=== PATIENT | male | born 1980 | race Caucasian/White ===

== ENCOUNTER 2016-08-31 11:27 | Inpatient (IN) | payer BC, OTHER ==
[~2016-08-31] VITALS: Ht 180.3 cm; Wt 73.5 kg
[~2016-08-31 11:27] MED LIST: CHEMO PO; IBUP-1542 PO; METO5TAB2 PO; NAPR-260 PO; OMEP10CA4 PO; OMEP20CA16 PO; PILO5TAB PO; PRED-248 PO; UDMYL PO; ZOLP5TAB6 PO; [UNRECOGNIZED DRUG - REMARK] PO; [UNRECOGNIZED DRUG - REMARK] PO
[2016-08-31] MEDS ORDERED: SOD CHLORIDE 0.9% 1,000 ML IV STA (11:54)
--- NOTE | 2016-08-31 12:05 | ERA ---
ER Documentation Chief Complaint Date/Time DATE: 08/31/16 TIME: 12:01 Chief Complaint Patient fell in the shower x2 he has had hematuria and blood in stool HPI HPI: Patient is a 36-year-old male with history of Susanna's granulomatosis who presents with syncopal episode in the shower. The patient states that as he was getting out of the shower he felt like the lights were getting dark and his hearing was getting muffled. He called out to his who witnessed him collapse and strike his head on the edge of the shower. He quickly regained consciousness, and she helped him to stand up, but he had a second episode of loss of consciousness and struck his head on the toilet. After the second episode, he was unconscious for 3 minutes. There was no reported seizure-like activity. Patient is not on blood thinners. Patient states that he has had bloody diarrhea for the last 1-1/2 months. He feels generally weak and dizzy. He also has chronic, constant dull chest pain, that his PMD has evaluated and determined to be due to pulmonary nodules. There is no change in the symptoms at this time. There is no shortness of breath, no pleuritic pain. Patient denies headache. He does complain of greater than 1 week of bilateral lower abdominal pain. Denies vomiting or fever. ROS All systems reviewed and are negative except as per history of present illness. Medications Home Meds Active Scripts Ibuprofen* (Ibuprofen*) 600 Mg Tablet, 600 MG PO Q6H Y for PA, #30 TAB WITH FOOD Prov:ANITA GUIDRY NP 03/26/15 Omeprazole* (Omeprazole*) 10 Mg Capsule.dr, 10 MG PO DAILY, #30 CAP Prov:ANITA GUIDRY NP 03/26/15 Magaldrate/Simethicone* (Mag-Al Plus Suspension*) 30 Ml Oral.susp, 30 ML PO Q6H Y for GASTROINTESTINAL UPSET, #1 BOTTLE Prov:ANITA GUIDRY NP 03/26/15 Naproxen* (Naprosyn*) 500 Mg Tablet, 500 MG PO BID Y for PAIN AND/OR INFLAMMATION, #30 TAB Prov:BETINA MELGAR-C 12/29/14 Reported Medications Azathioprine* (Imuran*) 50 Mg Tab, 50 MG PO DAILY, TAB 08/31/16 Discontinued Reported Medications Metoclopramide Hcl (Reglan) 5 Mg Tab, PO PRN 10/22/13 [Bp Med, Name/Dose Unk] No Conflict Check, PO DAILY 10/22/13 Zolpidem Tartrate* (Zolpidem Tartrate*) 5 Mg Tablet, PO PRN 10/22/13 [Ativan, Unk Dose] No Conflict Check, PO PRN 10/22/13 Omeprazole* (Omeprazole*) 20 Mg Capsule.dr, PO DAILY 10/22/13 [place]ine Hcl* (Salagen*) 5 Mg Tablet, PO DAILY 10/22/13 [Chemo] No Conflict Check, PO ONCE A WK 10/22/13 Prednisone (Prednisone) 10 Mg Tablet, 7 MG PO DAILY, 0 Refills 04/13/12 Allergies Allergies: Coded Allergies: No Known Allergy (Unverified , 03/25/15) PMhx/Soc Past medical history: Susanna's granulomatosis Past surgical history: Denies Social history: Denies tobacco or alcohol History of Surgery: Yes Anesthesia Reaction: No Hx Neurological Disorder: No Hx Respiratory Disorders: No Hx Cardiac Disorders: Yes (HTN) Hx Psychiatric Problems: No Hx Miscellaneous Medical Probl: Yes (cotto's ) Hx Alcohol Use: No Hx Substance Use: No Hx Tobacco Use: No FmHx Family History: No coronary disease, No diabetes Physical Exam Vitals Vital Signs Date Time Temp Pulse Resp B/P Pulse Ox O2 Delivery O2 Flow Rate FiO2 08/31/16 14:32 93 18 108/73 100 08/31/16 12:27 76 11 105/63 99 Room Air 08/31/16 11:32 98.6 90 20 113/57 100 Physical Exam Const: Alert, no acute distress Head: Small contusion to right frontal area, no hematoma Eyes: Normal Conjunctiva, no pallor or icterus, no nystagmus ENT: Normal External Ears, Nose and Mouth. Moist mucous membranes Neck: Full range of motion. No meningismus. Nexus negative Resp: Clear to auscultation bilaterally, no wheezes, rales or rhonchi Cardio: Regular rate and rhythm, no murmurs Abd: Soft, mild bilateral lower quadrant tenderness, no guarding, no rebound , non distended. No pulsatile mass Skin: No petechiae or rashes Back: No midline or flank tenderness Ext: No cyanosis, or edema Neur: Awake and alert, cranial nerves II through XII intact bilaterally, strength and sensation intact in 4 extremities. Psych: Normal Mood and Affect Result Diagram: 08/31/16 1159 08/31/16 1159 Results 24 hrs Laboratory Tests Test 08/31/16 11:59 White Blood Count 10.210^3/ul Red Blood Count 3.0610^6/ul Hemoglobin 8.2g/dl Hematocrit 25.8% Mean Corpuscular Volume 84.3fl Mean Corpuscular Hemoglobin 26.8pg Mean Corpuscular Hemoglobin Concent 31.8g/dl Red Cell Distribution Width 12.8% Platelet Count 52493^3/UL Mean Platelet Volume 9.2fl Neutrophils % 61.0% Band Neutrophils % 13.0% Lymphocytes % 16.0% Monocytes % 2.0% Eosinophils % 8.0% Neutrophils # 6.210^3/ul Lymphocytes # 1.610^3/ul Monocytes # 0.210^3/ul Eosinophils # 0.810^3/ul Differential Comment MANUAL DIFF Prothrombin Time 15.3Sec Prothrombin Time Ratio 1.2 INR International Normalized Ratio 1.20 Sodium Level 140mmol/L Potassium Level 3.6mmol/L Chloride Level 98mmol/L Carbon Dioxide Level 35mmol/L Anion Gap 11 Blood Urea Nitrogen 16mg/dl Creatinine 0.75mg/dl Glucose Level 106mg/dl Calcium Level 8.2mg/dl Total Bilirubin 0.1mg/dl Direct Bilirubin 0.00mg/dl Indirect Bilirubin 0.1mg/dl Aspartate Amino Transf (AST/SGOT) 13IU/L Alanine Aminotransferase (ALT/SGPT) 16IU/L Alkaline Phosphatase 68IU/L Troponin I < 0.012ng/ml Total Protein 6.3g/dl Albumin 2.9g/dl Globulin 3.40g/dl Albumin/Globulin Ratio 0.85 Current Medications Medications (Trade) Dose Ordered Sig/Meka Route PRN Reason Start Time Stop Time Status Last Admin Dose Admin Sodium Chloride (NS) 1,000 ml @ 1,000 mls/hr Q1H STAT IV 08/31/16 11:54 08/31/16 12:53 DC 3/26/17 12:18 Metoclopramide HCl (Reglan) 10 mg ONCE ONCE IV 08/31/16 14:00 08/31/16 14:01 DC 08/31/16 13:57 Morphine Sulfate (morphine) 4 mg ONCE STAT IV 08/31/16 14:33 08/31/16 14:34 DC 08/31/16 14:46 Procedures/MDM EKG read by me: Time 1232, rate 81 Rhythm: Normal sinus [place]: Normal Intervals: Normal ST-T waves: no ischemic changes Ectopy: No Q-waves: No Impression: No evidence of ischemia or arrhythmia Head CT: IMPRESSION: No evidence of acute intracranial pathology. Chest x-ray: IMPRESSION: No acute disease. MDM: Patient is a 36-year-old male with history of Susanna's granulomatosis who reports 2 episodes of syncope prior to arrival. Patient has had a month and a half of bloody stools, and has history of focal colitis with GI bleed in the past. His hemoglobin is 8.1 suggestive of blood loss. Vital signs are stable. The patient did sustain head trauma during syncopal events, but head CT is negative. Nexus negative. No other signs of trauma. EKG is unremarkable, and other labs and exam are benign. The patient does complain of chronic chest and abdominal pain, without any acute change. Repeat abdominal exam is completely benign. Chest pain is described as right lower chest, consistent with previous pain. I have low suspicion for pulmonary embolism as the patient has normal vital signs, chronic symptoms, and no risk factors. I will admit the patient for further cardiac monitoring, as well as further workup of GI bleed, with a likely lower GI source. Given the duration of symptoms, I do not believe that transfusion is emergently indicated. I discussed the case with Dr. Coleman who will admit the patient to observation for further workup. Departure Diagnosis: Primary Impression: Syncope Qualified Code: R55 - Syncope, unspecified syncope type Additional Impressions: Lower GI bleed Anemia Qualified Code: D64.9 - Anemia, unspecified type Wegeners granulomatosis Condition: HORACE Navas MD Aug 31, 2016 12:05
--- NOTE | 2016-08-31 12:25 | RADRPT ---
PROCEDURE: XR Chest. CLINICAL INDICATION: chest pain, syncope TECHNIQUE: Single frontal view of the chest was obtained COMPARISON: 03/25/15 FINDINGS: The heart and mediastinum are within normal limits. The lungs are clear. There is no pleural effusion or pneumothorax. RPTAT: AA IMPRESSION: No acute disease. .Osmani Chester MD, MD Date Time Electronically viewed and signed by .Osmani Chester MD, on 08/31/2016 12:25 .S/
[2016-08-31 12:33] LABS: ADD SCAN DIFF NO
[2016-08-31 12:38] LABS: HEMATOCRIT 25.8 % (42.0-52.0); HEMOGLOBIN 8.2 g/dl (14.0-18.0); MEAN CORPUSCULAR HEMOGLOBIN 26.8 pg (29.0-33.0); MEAN CORPUSCULAR HGB CONC 31.8 g/dl (32.0-37.0); MEAN CORPUSCULAR VOLUME 84.3 fl (82.0-101.0); MEAN PLATELET VOLUME 9.2 fl (7.4-10.4); PLATELET COUNT 456 10^3/UL (140-415); RED BLOOD COUNT 3.06 10^6/ul (4.70-6.10); RED CELL DISTRIBUTION WIDTH 12.8 % (11.5-14.5); WHITE BLOOD COUNT 10.2 10^3/ul (4.8-10.8)
[2016-08-31 12:51] LABS: ALBUMIN 2.9 g/dl (3.3-4.9)
[2016-08-31 12:52] LABS: CHLORIDE 98 mmol/L (97-110); POTASSIUM 3.6 mmol/L (3.5-5.1); SODIUM 140 mmol/L (135-144)
[2016-08-31 12:54] LABS: ALBUMIN/GLOBULIN RATIO 0.85; ALKALINE PHOSPHATASE 68 IU/L (42-121); ANION GAP 11 (8-16); ASPARTATE AMINO TRANSFERASE 13 IU/L (15-46); BILIRUBIN,INDIRECT 0.1 mg/dl (0-1.1); BILIRUBIN,TOTAL 0.1 mg/dl (0.2-1.3); CARBON DIOXIDE 35 mmol/L (21-31); CREATININE 0.75 mg/dl (0.61-1.24); TOTAL PROTEIN 6.3 g/dl (6.1-8.1)
[2016-08-31 12:55] LABS: ALANINE AMINOTRANSFERASE 16 IU/L (13-69); BLOOD UREA NITROGEN 16 mg/dl (7-20); CALCIUM 8.2 mg/dl (8.4-10.2); GLUCOSE 106 mg/dl (70-220)
[2016-08-31 12:59] LABS: INR 1.2; PROTIME 15.3 Sec (12.2-14.2); PT RATIO 1.2
[2016-08-31 13:15] LABS: TROPONIN-I < 0.012 ng/ml (0.00-0.12)
[2016-08-31] MEDS ORDERED: IMU50 PO (13:22)
[2016-08-31 13:40] LABS: EOSINOPHILS # 0.8 10^3/ul (0.0-0.5); LYMPHOCYTES # 1.6 10^3/ul (0.8-2.9); MONOCYTE # 0.2 10^3/ul (0.3-0.9); NEUTROPHIL # 6.2 10^3/ul (1.6-7.5)
[2016-08-31] MEDS ORDERED: METOCLOPRAMIDE 10 MG INJ IV ONE (14:00)
--- NOTE | 2016-08-31 14:27 | RADRPT ---
PROCEDURE: CT Brain without contrast. CLINICAL INDICATION: Patient experiencing Syncope. TECHNIQUE: A CT of the brain was performed on a [employer] 64-slice CT scanner utilizing axial imaging from the skull base through the vertex without IV contrast. Multiplanar reformatted images were made. Images were reviewed on a PACS workstation. The CTDIvol is 42.6 mGy and the DLP is 720 mGycm. COMPARISON: None FINDINGS: There is no intracranial hemorrhage, mass effect, or midline shift. No extra-axial fluid collection is seen. The ventricles and sulci are normal in size and configuration. The density of the brain is normal, and the wallace white matter differentiation appears well-preserved. The visualized paranasal sinuses and osseous structures are grossly unremarkable. IMPRESSION: No evidence of acute intracranial pathology. Physician Air Date Time Electronically viewed and signed by Physician Ari on 08/31/2016 14:22 ML/
[2016-08-31] MEDS ORDERED: morphine 4 MG/ML VIAL IV STA (14:33)
[2016-08-31 15:14] LABS: ADD UMIC YES; URINE BILIRUBIN (Dip) NEGATIVE (NEGATIVE); URINE BLOOD (Dip) NEGATIVE (NEGATIVE); URINE COLOR LT. YELLOW (YELLOW); URINE GLUCOSE (Dip) NEGATIVE (NEGATIVE); URINE KETONES (Dip) TRACE (NEGATIVE); URINE LEUKOCYTE ESTERASE (Dip) NEGATIVE (NEGATIVE); URINE NITRITE (Dip) NEGATIVE (NEGATIVE); URINE TOTAL PROTEIN (Dip) TRACE (NEGATIVE); URINE UROBILINOGEN (Dip) 0.2 E.U./dL (0.1-1.0)
[2016-08-31] MEDS ORDERED: ACETAMINOPHEN 325 MG TAB PO PRN (15:30)
[2016-08-31] MEDS ORDERED: ONDANSETRON 4 MG INJ IV PRN (15:30)
[2016-08-31 15:38] LABS: BACTERIA,URINE FEW; SQUAMOUS EPITHELIAL CELL,UR FEW
[2016-08-31] MEDS ORDERED: SOD CHLORIDE 0.9% 250 ML IV* ONE (16:16)
[2016-08-31] MEDS ORDERED: FUROSEMIDE 40 MG INJ IV SCH (16:30)
[2016-08-31] MEDS ORDERED: NACL 0.9% 3 ML SYG IV SCH (16:30)
--- NOTE | 2016-08-31 16:55 | RADRPT ---
PROCEDURE: US Carotids. CLINICAL INDICATION: bruit , Syncope TECHNIQUE: Multiple sonographic of the carotid bifurcation region and vertebral arteries were obta ined utilizing wallace scale, duplex and color-flow imaging. The images were reviewed on a PACS worksta tion. COMPARISON: No prior studies are available for comparison. FINDINGS: Evaluation of the right carotid bifurcation region reveals no significant calcific atherosclerotic d isease. Evaluation of the left carotid bifurcation region reveals no significant calcific atherosclerotic di sease. There is antegrade flow within the vertebral arteries bilaterally. RIGHT CAROTID MEASUREMENTS: Common Carotid Ejtjkb37.4 (cm/sec) Internal Carotid Artery - ynuvbxej15.5 (cm/sec) Internal Carotid Artery - mid59 (cm/sec) Internal Carotid Artery - zopwbc40 (cm/sec) Internal Carotid/Common Carotid0.82 LEFT CAROTID MEASUREMENTS: Common Carotid Fdlebq75.6 (cm/sec) Internal Carotid Artery - bxscoidb08.7 (cm/sec) Internal Carotid Artery - mid66.3 (cm/sec) Internal Carotid Artery - .8 (cm/sec) Internal Carotid/Common Carotid0.79 RPTAT: AA IMPRESSION: No evidence for hemodynamically significant stenosis in the bilateral internal carotid arteries - va lidated velocity measurements with angiographic measurements, velocity criteria are extrapolated fro m diameter data as defined by the Society of Radiologists in Ultrasound Consensus Conference Radiolo gy 2003; 229;340-346. This study does indirectly reference the measurement of the distal ICA diamet er as the denominator for stenosis measurement. Normal antegrade flow in the vertebral arteries bilaterally. .Osmani Chester MD, Date Time Electronically viewed and signed by .Osmani Chester MD, MD on 08/31/2016 16:55 .S/
[2016-08-31 17:11] LABS: IRON 13 ug/dl (35-150)
[2016-08-31 17:14] LABS: CREATINE KINASE 24 IU/L (23-200)
--- NOTE | 2016-08-31 17:18 | RADRPT ---
PROCEDURE: RIGHT knee x-ray CLINICAL INDICATION: Knee pain TECHNIQUE: AP, lateral and tunnelviews of the knee were obtained. COMPARISON: None FINDINGS: There is normal mineralization. No acute fracture or dislocation is seen. There is no joint effusion. There are no significant degenerative changes. There is no significant soft tissue swelling. RPTAT: AA IMPRESSION: Normal x-ray of the right knee. .Osmani Chester MD, MD Date Time Electronically viewed and signed by .Osmani Chester MD, on 08/31/2016 17:18 .S/
[2016-08-31 17:20] LABS: TOTAL IRON BINDING CAPACITY 212 ug/dl (241-421)
--- NOTE | 2016-08-31 17:20 | RADRPT ---
PROCEDURE: Pelvis x-ray CLINICAL INDICATION: Pain TECHNIQUE: Single AP view of the pelvis performed. COMPARISON: None FINDINGS: Normal mineralization, architecture and alignment. No fracture or osseous lesion identified. The right femoral neck is not well seen. There are no significant degenerative changes. Unremarkable soft tissues. RPTAT: AA IMPRESSION: No acute fracture or subluxation. .Osmani Chester MD, MD Date Time Electronically viewed and signed by .Osmani Chester MD, on 08/31/2016 17:19 .S/
[2016-08-31 17:26] LABS: CK-MB < 0.22 ng/ml (0.0-2.4); TROPONIN-I < 0.012 ng/ml (0.00-0.12)
[2016-08-31 17:43] LABS: THYROID STIMULATING HORMONE 1.7 MIU/L (0.465-4.680)
[2016-08-31 17:47] LABS: FERRITIN 8.4 ng/ml (17.9-464.0)
--- NOTE | 2016-08-31 18:43 | HP ---
DATE OF ADMISSION: 08/31/2016 TIME OF EVALUATION: 1600 REASON FOR ADMISSION: Status post syncope at home. Melena/hematochezia. CONSULTATIONS: Dr. Yanira Belcher, Gastroenterology. HISTORY OF PRESENT ILLNESS: This is a 36-year-old male with past medical history of Susanna's granulomatosis who had 2 episodes of syncope with resultant fall at home while he was in the shower. The patient verbalized that he was getting out of the shower and then he felt like the lights were getting dark and then he heard a muffling sound in his ears followed by loss of consciousness. He called out to his , who witnessed him collapse and slide his head on the edge of the shower. He quickly regained consciousness, and she helped him to stand up. However, but he had a second episode of loss of consciousness while he was sitting on the toilet. After the second episode, he was unconscious for approximately 3 minutes. There was no reported seizure- like activity. There was no reported foaming in the mouth. The patient denied any chest pain prior to the syncope. The patient verbalized that he has been having bloody diarrhea for the past 1 month or so. He has also been progressively becoming weak. He complained of generalized body aches. There was no reported bleeding from the head. There was no periorbital ecchymosis. He was complaining of chronic constant, dull chest pain and pain in his joints. He was complaining of runny nose. He denied any coughs. The patient follows up with outpatient rheumatology in [place]. The patient was supposed to be on Imuran. However, because of insurance reasons, he was not taking the Imuran for the past 1 year or so. The patient was complaining of dyspnea. He was complaining of abdominal pain. He verbalized subjective fevers. Denied any nausea or vomiting. Denied any hematuria. He denied any hematemesis. Denied any unintentional weight loss. He was complaining of night sweats. In the emergency room, the patient underwent a chest x-ray that was negative for any acute cardiopulmonary findings. He underwent a brain CT scan that was negative for any acute intracranial pathology. The patient's hemoglobin and hematocrit was 8.2 and 25.8, respectively. The patient's urinalysis was negative for any hemoglobin. The patient was treated with IV analgesics as well as IV Reglan and IV fluids in the emergency room. PAST MEDICAL HISTORY: Susanna granulomatosis. PAST SURGICAL HISTORY: Repair of anal fissure. HOME MEDICATIONS: 1. Omeprazole 10 mg p.o. daily. 2. Azathioprine 50 mg p.o. daily. ALLERGIES: NO KNOWN DRUG ALLERGIES. SOCIAL HISTORY: The patient lives at home with his . Denies any use of tobacco, alcohol or illicit drugs. REVIEW OF SYSTEMS: A 12-point review of systems were made and the review of systems are negative other than what is mentioned in the history of present illness. PHYSICAL EXAMINATION: VITAL SIGNS: Temperature 98.6, pulse rate 90, respiratory rate 20, blood pressure 103/66, oxygen saturation 100% on room air. GENERAL: This is a well-built, well-nourished male lying in bed in no apparent distress. HEENT: Head normocephalic and atraumatic. Eyes: Anicteric sclerae. Conjunctivae clear. ENT: Nasal septum is midline. Oral mucosa is dry. NECK: Supple. No JVD noticed. RESPIRATORY: Bilaterally clear to auscultation. No adventitious breath sounds. No use of accessory muscles of respiration. CARDIAC: Regular rate and rhythm. No obvious murmurs heard. ABDOMEN: Abdomen soft, nontender and nondistended. Bowel sounds positive in all 4 quadrants. GENITOURINARY: Deferred. EXTREMITIES: No cyanosis, no clubbing, no edema. Peripheral pulses are palpable. NEUROLOGIC: The patient is awake, alert and oriented. Cranial nerves are grossly intact. LABORATORY AND DIAGNOSTIC DATA: WBC 10.2, hemoglobin 8.7, hematocrit 25.8, platelet count 456. Sodium 140, potassium 3.6, chloride 90, anion gap 11, BUN 16, creatinine 0.75, glucose 106, calcium 8.2, AST 13, ALT 16, alkaline phosphatase 68, troponin-I less than 0.012, albumin 2.9. PT 15.3, INR 1.20. Urinalysis : Urine nitrite negative, urine leukocyte esterase negative, urine hemoglobin negative, urine protein negative. Chest x-ray: No acute cardiopulmonary findings. Brain CT scan: No acute intracranial findings. 12-lead EKG: Normal sinus rhythm. IMPRESSION: This is a 36-year-old male with past medical history of Susanna granulomatosis, who had 2 episodes of syncopal episode at home, who was found to have underlying anemia and also complaining of gastrointestinal bleeding, who will be admitted here for further treatment and evaluation. ASSESSMENT AND PLAN: 1. Syncope. Etiology unclear. This could be from anemia versus others. The patient's brain CT scan negative for any acute intracranial findings. Carotid Doppler study will be done to evaluate for any underlying carotid artery stenosis. A 2D echocardiogram will be done to evaluate for any underlying wall motion abnormalities or heart failure. The patient will be ruled out for any underlying acute coronary syndrome. The patient will be monitored with telemetry. A physical therapy evaluation will be ordered. 2. Gastrointestinal bleeding. The patient will be started on Protonix. However, he will not be started on any Protonix drip since the patient is not actively bleeding. Stool for occult blood will be obtained. A gastroenterology consult will be obtained. 3. Hypochromic anemia. Etiology unclear. Probably anemia of acute blood loss. We will obtain an iron panel on this patient. We will transfuse blood products as needed. 3. Susanna granulomatosis. The patient has an outpatient sap sd analyst with whom he regularly follows up. The patient's Imuran will be resumed. 4. Status post fall secondary to syncope. The patient's brain CT scan has been negative for any acute findings. The patient was also complaining of right knee pain and pelvic pain. Radiographic examination of these areas will be done to evaluate for any underlying fractures other injuries. Plan. The patient will be admitted to inpatient telemetry floor. The patient will be started on a regular diet. He will be started on gastrointestinal prophylaxis. Chemical DVT prophylaxis will be avoided because of underlying anemia. The patient will remain a FULL CODE. Activities will be with assistance. The rest of the patient's management will be based on the clinical course, the results of diagnostic studies and inputs from consultants. Based on the patient's clinical presentation, he most probably requires at least 2-midnights' stay for further management and evaluation of his clinical presentation. The case and management of this patient was fully discussed with Dr. Barbosa. ATILIO BARBOSA MD, AM/MADHURI Conf#: [id number] DID#: [id number] FRANSICO
[2016-08-31] MEDS: PANTOPRAZOLE 40 MG INJ IV SCH (18:57)
[2016-08-31] MEDS: morphine 2 MG INJ IV PRN (19:15)
[2016-08-31 19:18] LABS: ADD UMIC NO; URINE BILIRUBIN (Dip) NEGATIVE (NEGATIVE); URINE BLOOD (Dip) NEGATIVE (NEGATIVE); URINE COLOR LT. YELLOW (YELLOW); URINE GLUCOSE (Dip) NEGATIVE (NEGATIVE); URINE KETONES (Dip) 15 (NEGATIVE); URINE LEUKOCYTE ESTERASE (Dip) NEGATIVE (NEGATIVE); URINE NITRITE (Dip) NEGATIVE (NEGATIVE); URINE TOTAL PROTEIN (Dip) NEGATIVE (NEGATIVE); URINE UROBILINOGEN (Dip) 0.2 E.U./dL (0.1-1.0)
[2016-08-31] MEDS: SOD FERRIC GLUC COMPLX 125 MG in SOD CHLORIDE 0.9% 100 ML IVPB SCH (19:29)
--- NOTE | 2016-08-31 20:05 | EN ---
Date/Time of Note Date/Time of Note DATE: 08/31/16 TIME: 19:57 Event Note Medicine Medicine Event Note TRANSFUSION REACTION: Patient was scheduled to go to Telemetry, but I have transferred him to the ICU after confirming the move with the City Collector who will notify the ICU staff. Patient is a 36 y/o male who has had rectal bleeding for the past 5 weeks. He passed out in the shower this morning, hitting his head, witnessed by his , but he woke up right away. However, while on the commode, he passed out again, this time for 3 minutes. In the ED, his Hgb was 8 and a blood transfusion was started. Unfortunately, he spiked a fever to 101.5 and the transfusion was stopped. He was treated with Tylenol and IVF. Sodium Ferric Gluconate Complex was ordered. The RN looked up possible side effects, and they include hypotension. Patient's SBP is 100. I recommend HOLD the Complex and transfer patient to the ICU rather than Tele. ARTUR DIAZ DO Aug 31, 2016 20:05
[2016-08-31] MEDS ORDERED: LORAZEPAM 1 MG TAB PO PRN (21:00)
[2016-08-31 21:10] VITALS: TEMP 99.8
[2016-08-31 22:00] VITALS: BP 102/81; PULSE 105; RESP 23; Ht 180.3 cm; Wt 73.5 kg
[2016-08-31] MEDS ORDERED: SOD CHLORIDE 0.9% 500 ML IV ONE (22:30)
[2016-08-31 23:00] VITALS: BP 101/65; PULSE 91; RESP 10
[2016-08-31] MEDS: SOD CHLORIDE 0.9% 1,000 ML IV SCH (23:31)
[2016-09-01] VITALS (12 sets, daily range): BP systolic 81–103; BP diastolic 45–68; PULSE 82–101; RESP 13–18
[2016-09-01] MEDS ORDERED: DIPHENHYDRAMINE 50 MG INJ IV ONE (03:00)
[2016-09-01] MEDS ORDERED: SOD CHLORIDE 0.9% 500 ML IV ONE (03:00)
[2016-09-01] MEDS ORDERED: ACETAMINOPHEN 1000MG/100ML IV 100 ML IVPB ONE (03:00)
[2016-09-01] MEDS: morphine 2 MG INJ IV PRN ×3 (05:58→21:51)
[2016-09-01] MEDS: PANTOPRAZOLE 40 MG INJ IV SCH ×2 (05:58→18:16)
[2016-09-01 06:33] LABS: ADD SCAN DIFF NO
[2016-09-01 06:37] LABS: ABNORMAL IP MESSAGE 1; BASOPHIL # 0.1 10^3/ul (0.0-0.1); BASOPHILS % 0.5 % (0.0-2.0); EOSINOPHILS # 1.2 10^3/ul (0.0-0.5); EOSINOPHILS % 9.9 % (0.0-7.0); HEMOGLOBIN 8.4 g/dl (14.0-18.0); LYMPHOCYTES # 2.5 10^3/ul (0.8-2.9); MEAN CORPUSCULAR HEMOGLOBIN 27.3 pg (29.0-33.0); MEAN CORPUSCULAR HGB CONC 32.3 g/dl (32.0-37.0); MEAN CORPUSCULAR VOLUME 84.4 fl (82.0-101.0); MEAN PLATELET VOLUME 8.8 fl (7.4-10.4); MONOCYTE # 1.8 10^3/ul (0.3-0.9); NEUTROPHIL # 6.3 10^3/ul (1.6-7.5); NEUTROPHILS % 53.3 % (39.0-77.0); PLATELET COUNT 339 10^3/UL (140-415); RED BLOOD COUNT 3.08 10^6/ul (4.70-6.10); RED CELL DISTRIBUTION WIDTH 13.1 % (11.5-14.5); WHITE BLOOD COUNT 11.8 10^3/ul (4.8-10.8)
[2016-09-01 06:58] LABS: ALBUMIN 2.5 g/dl (3.3-4.9)
[2016-09-01 06:59] LABS: POTASSIUM 3.4 mmol/L (3.5-5.1)
[2016-09-01 07:01] LABS: ALBUMIN/GLOBULIN RATIO 0.8; BILIRUBIN,INDIRECT 0.2 mg/dl (0-1.1); BILIRUBIN,TOTAL 0.2 mg/dl (0.2-1.3); CREATININE 0.76 mg/dl (0.61-1.24); TOTAL PROTEIN 5.6 g/dl (6.1-8.1)
[2016-09-01 07:02] LABS: CALCIUM 7.6 mg/dl (8.4-10.2)
[2016-09-01 07:03] LABS: MAGNESIUM 1.7 mg/dl (1.7-2.5); PHOSPHORUS 4.2 mg/dl (2.5-4.9)
[2016-09-01 07:28] LABS: TROPONIN-I < 0.012 ng/ml (0.00-0.12)
[2016-09-01] MEDS: AZATHIOPRINE 50 MG TAB PO SCH (08:16)
[2016-09-01] MEDS: SOD CHLORIDE 0.9% 1,000 ML IV SCH ×2 (12:50→18:24)
--- NOTE | 2016-09-01 13:05 | RADRPT ---
Echocardiogram Report Patient Name: JEN LAND Gender: Male Date: 1980 Study Date: 01-Sep-2016 Curing Bin Operator: Deanne Lozano RDCS Location: 117 Ref. Physician: ATILIO SALINAS Quality: Technically Difficult Study Procedures: Transthoracic echocardiogram with complete 2D, M-Mode, and doppler examination. Indications: Evaluate Left Ventricular function. 2D/M Mode Doppler Measurement Value Normal Ranges Measurement Value Normal Ranges LVIDd 2D 5.1 3.5 - 5.6 cm AV Peak Frantz 1.7 m/sec LVIDs 2D 2.5 2.1 - 4.1 cm AV Peak PG 11.6 mmHg LVPWd 2D 1.1 0.6 - 1.1 cm LVOT Peak Frantz 1.4 m/sec IVSd 2D 0.9 0.6 - 1.1 cm LVOT Peak PG 8.2 mmHg AoR Diam 2D 3.1 2.0 - 3.7 cm MV E Peak Frantz 0.8 m/sec EDV 2D 121.9 cm3 MV A Peak Frantz 0.5 m/sec ESV 2D 15.7 cm3 MV E/A 1.5 LA Dimen 2D 3.1 2.3 - 4.0 cm MV Decel Time 154 msec MV Decel [place] 5 MV E/A 1.5 Findings Left Ventricle: Normal left ventricular systolic function. Normal left ventricular cavity size. Normal left ventricular wall thickness. Ejection fraction is visually estimated at 60 %. Right Ventricle: Normal right ventricular size. Normal right ventricular systolic function. Left Atrium: The left atrium is normal in size. Right Atrium: The right atrium is normal in size. Mitral Valve: Normal appearance and function of the mitral valve with trace physiologic regurgitation. Aortic Valve: Normal appearance of the aortic valve. No significant aortic stenosis or insufficiency. Tricuspid Valve: Normal appearance and function of the tricuspid valve with trace physiologic regurgitation. Pulmonic Valve: Normal pulmonic valve appearance. Pericardium: Normal pericardium with no significant pericardial effusion. Aorta: Normal aortic root. IVC: Normal size and normal respiratory collapse consistent with normal right atrial pressure. Conclusions 1.Normal left ventricular systolic function. Normal left ventricular cavity size. Normal left ventricular wall thickness. Ejection fraction is visually estimated at 60 %. 2.Normal right ventricular size. Normal right ventricular systolic function. 3.The left atrium is normal in size. 4.The right atrium is normal in size. 5.No significant valvular stenosis or regurgitation seen. 6.Normal pericardium with no significant pericardial effusion. Electronically Signed By: Delroy De La Fuente 01-Sep-2016 13:05:07 -0700 Patient Name: JEN LAND Study Date: 01-Sep-2016 [id number]
[2016-09-01] MEDS: ACETAMINOPHEN 325 MG TAB PO PRN (14:02)
--- NOTE | 2016-09-01 14:54 | PN ---
Date/Time of Note Date/Time of Note DATE: 09/01/16 TIME: 10:00a.m. Assessment/Plan VTE Prophylaxis VTE Prophylaxis Intervention: SCD's Lines/Catheters IV Catheter Type (from Nrs): Peripheral IV Urinary Cath still in place: No Assessment/Plan Chief Complaint/Hosp Course Assessment and plan 1. Reported GI bleed. Accountant Bookkeeper to follow. Await recommendations. Continue on PPI medication for now. Monitor H&H. Transfuse PRBC as needed 2. Iron anemia. Continue iron supplement 3. Reported fall secondary to syncope. CT scan of the brain negative for any acute findings. Doppler of the carotid also with no acute findings. Likely secondary to anemia. Continue to monitor. 4. 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 DISPO/PLAN: appears stable. transfer to med/surg. Await GI recs. cont inpatient monitoring Discussed plan of care with Dr. Romo Problems: Subjective 24 Hr Interval Summary Free Text/Dictation no s/s of distress seen. comfortable at present Exam/Review of Systems Vital Signs Vitals Vital Signs Date Time Temp Pulse Resp B/P Pulse Ox O2 Delivery O2 Flow Rate FiO2 09/01/16 13:45 100.9 89 18 103/58 100 Room Air Intake and Output 08/31/16 08/31/16 09/01/16 15:00 23:00 07:00 Intake Total 0 ml 1475 ml Output Total 450 ml 100 ml Balance -450 ml 1375 ml Exam General: No acute signs or symptoms of distress Eyes: pupils equal round, Anicteric sclera Neck: Supple nontender, no JVD Cardiac: S1, S2 auscultated, regular rhythm and rate Pulmonary: No coarse rhonchi or breathing auscultated GI: Abdomen soft nontender nondistended, bowel sounds active Extremities: No edema bilateral lower extremities Skin: Clean dry and intact Neurologic: Alert to person place and time and situation Results Result Diagram: 09/01/16 0610 09/01/16 0610 Results 24 hrs Laboratory Tests Test 08/31/16 14:50 08/31/16 16:45 08/31/16 19:05 09/01/16 06:10 Urine Color LT. YELLOW LT. YELLOW Urine Clarity CLEAR CLEAR Urine pH 8.5 8.0 Urine Specific [place] 1.010 1.010 Urine Ketones TRACE 15 Urine Nitrite NEGATIVE NEGATIVE Urine Bilirubin NEGATIVE NEGATIVE Urine Urobilinogen 0.2 E.U./dL 0.2 E.U./dL Urine Leukocyte Esterase NEGATIVE NEGATIVE Urine Microscopic RBC 2-5 Urine Microscopic WBC 2-5 Urine Squamous Epithelial Cells FEW Urine Bacteria FEW Urine Hemoglobin NEGATIVE NEGATIVE Urine Glucose NEGATIVE NEGATIVE Urine Total Protein TRACE NEGATIVE Erythrocyte Sedimentation Rate 105 H Hemoglobin A1c 5.5 Iron Level 13 L Total Iron Binding Capacity 212 L Percent Iron Saturation 6 L Ferritin 8.4 L Creatine Kinase 24 Creatine Kinase Index 0.9 Creatinine Kinase MB (Mass) < 0.22 Troponin I < 0.012 < 0.012 C-Reactive Protein 8.4 H Vitamin D 1,25-Dihydroxy 31.1 Thyroid Stimulating Hormone (TSH) 1.700 Free Thyroxine 1.35 White Blood Count 11.8 H Red Blood Count 3.08 L Hemoglobin 8.4 L Hematocrit 26.0 L Mean Corpuscular Volume 84.4 Mean Corpuscular Hemoglobin 27.3 L Mean Corpuscular Hemoglobin Concent 32.3 Red Cell Distribution Width 13.1 Platelet Count 339 # Mean Platelet Volume 8.8 Neutrophils % 53.3 Lymphocytes % 21.0 Monocytes % 15.0 H Eosinophils % 9.9 H Basophils % 0.5 Nucleated Red Blood Cells % 0.0 Neutrophils # 6.3 Lymphocytes # 2.5 Monocytes # 1.8 H Eosinophils # 1.2 H Basophils # 0.1 Nucleated Red Blood Cells # 0.0 Sodium Level 138 Potassium Level 3.4 L Chloride Level 104 Carbon Dioxide Level 26 Anion Gap 11 Blood Urea Nitrogen 15 Creatinine 0.76 Glucose Level 82 Calcium Level 7.6 L Phosphorus Level 4.2 Magnesium Level 1.7 Total Bilirubin 0.2 Direct Bilirubin 0.00 Indirect Bilirubin 0.2 Aspartate Amino Transf (AST/SGOT) 12 L Alanine Aminotransferase (ALT/SGPT) 17 Alkaline Phosphatase 57 Total Protein 5.6 L Albumin 2.5 L Globulin 3.10 Albumin/Globulin Ratio 0.80 Medications Medications Current Medications Lorazepam (Ativan) 0.5 mg Q6H PRN IV ANXIETY; Start 08/31/16 at 16:30 Ondansetron HCl (Zofran Inj) 4 mg Q6H PRN IV NAUSEA AND/OR VOMITING; Start at 16:30 Acetaminophen (Tylenol Tab) 650 mg Q6H PRN PO PAIN LEVEL 1-3 OR FEVER Last administered on 09/01/16t 14:02; Admin Dose 650 MG; Start 08/31/16 at 16:30 Acetaminophen/ Hydrocodone Bitart ([place] (5/325)) 1 tab Q6H PRN PO PAIN LEVEL 4 -6; Start 08/31/16 at 16:30 Morphine Sulfate (morphine) 2 mg Q4H PRN IV PAIN LEVEL 7-10 Last administered on 09/01/16 05:58; Admin Dose 2 MG; Start 08/31/16 at 16:30 Pantoprazole (Protonix Iv) 40 mg BID@06,18 IV Last administered on 09/01/16 05 :58; Admin Dose 40 MG; Start 08/31/16 at 18:00 Furosemide (Lasix) 10 mg ONCE IV Last administered on 08/31/16 17:35; Admin Dose 10 MG; Start 08/31/16 at 16:30; Stop 09/01/16 at 16:29 Azathioprine 50 mg 50 mg DAILY PO Last administered on 09/01/16 08:16; Admin Dose 50 MG; Start 09/01/16 at 09:00 Ferric Sodium Gluconate Complex/ Sodium Chloride (Ferrlecit/NS) 110 ml @ 100 mls/hr Q24H IVPB Last administered on 08/31/16 19:29; Admin Dose 100 MLS/HR; Start 08/31/16 at 18:00; Stop 09/02/16 at 19:05 Influenza Virus Vaccine 0.5 ml 0.5 ml ONCE ONCE IM* ; Start 09/02/16 at 09:00; Stop 09/02/16 at 09:01 Sodium Chloride (NS) 1,000 ml @ 75 mls/hr [id number] IV Last administered on 08/31 23:31; Admin Dose 75 MLS/HR; Start 08/31/16 at 23:30 HILLARY VALDOVINOS Sep 01, 2016 14:54
[2016-09-01] MEDS ORDERED: ACETAMINOPHEN 325 MG TAB PO PRN (15:30)
[2016-09-01] MEDS ORDERED: MAGNESIUM CITRATE 300 ML BTL PO ONE (17:30)
--- NOTE | 2016-09-01 17:51 | CONS ---
Date/Time of Note Date/Time of Note DATE: 09/01/16 TIME: 17:28 Assessment/Plan Assessment/Plan Additional Assessment/Plan Assessment * Anemia acute hemoglobin 8.4 * GI bleed/Hematochezia * LGI bleeding: inflammatory, neoplasm, others * vs upper GI bleed * Diarrhea * Infectious vs inflammatory vs osmotic * Susanna granulomatosis * Syncope ct head negative Plan * colonoscopy in afternoon risks and benefit explain to patient ,agreed to procedure * monitor H and H q6 and transfuse 1 unit PRBC for hemoglobin 7.5,and 2 units if hgb less than 7 * PPI Consultation Date/Type/Reason Admit Date/Time Aug 31, 2016 at 15:12 Type of Consultation: Gastroenterology Reason for Consultation Lower gi bleed Hx of Present Illness 36 y/o male referred for evaluation of lower gi bleed one month duration. Past medical history revealed history of Wegeners granulomatosis,history of colonoscopy 2011 because of diarrhea.Patient was evaluated at er because syncope ,no seizure activity.CT scan showed No evidence of acute intracranial pathology.Carotid Doppler showed No evidence for hemodynamically significant stenosis in the bilateral internal carotid arteries - validated velocity measurements with angiographic measurements, velocity criteria are extrapolated from diameter data as defined by the Society of Radiologists in Ultrasound Consensus Conference Radiology 2003; 229;340-346. This study does indirectly reference the measurement of the distal ICA diameter as the denominator for stenosis measurement. Patient compaine with episode of diarrhea with hematochezia 1 month duration gradually becoming worse 2 weeks prior to admission hematochezia was about 2 teaspoon per episode with associated diarrhea 3x /day ,body malaise.No medications taken.Presently bleeding was seen at the toilet bowl ,no nausea ,vomiting or hematemesis,minimal .Patient claims to be feeling warm but no fever.Latest hemoglobin is 8.4 Constitutional: improved, no complaints Eyes: no complaints ENT: no complaints Respiratory: no complaints Cardiovascular: no complaints Gastrointestinal: blood (hematocheizia), diarrhea, flatus, no complaints, pain (diffuse pain), passing stool, No decreased appetite, No nausea, No vomiting Genitourinary: no complaints Musculoskeletal: no complaints Skin: no complaints Neurologic: no complaints Endocrine: no complaints Lymphatic: no complaints Psychological: nl mood/affect, no complaints Immunologic: no complaints Past Medical History Medical History: other (wegeners granulomatosis) Past Surgical History Past Surgical Hx: other (colonoscopy 2011) Family History Significant Family History: no pertinent family hx Social History Alcohol Use: occasionally Smoking Status: Never smoker Drug Use: none Exam/Review of Systems Vital Signs Vitals Vital Signs Date Time Temp Pulse Resp B/P Pulse Ox O2 Delivery O2 Flow Rate FiO2 09/01/16 13:45 100.9 89 18 103/58 100 Room Air Intake and Output 08/31/16 08/31/16 09/01/16 15:00 23:00 07:00 Intake Total 0 ml 1475 ml Output Total 450 ml 100 ml Balance -450 ml 1375 ml Exam Constitutional: alert, oriented, well developed Psych: nl mood/affect, no complaints Head: atraumatic, normocephalic Eyes: PERRL, nl conjunctiva, nl lids, nl sclera ENMT: nl external ears & nose, nl lips & teeth Neck: non-tender, supple Respiratory: clear to auscultation, normal air movement Cardiovascular: nl pulses, regular rate and rhythm Gastrointestinal: bowel sounds, nl liver, spleen, soft, tender (diffuse tenderness abdomen ,no rebound) Musculoskeletal: nl extremities to inspection, nl gait and stance Extremities: normal pulses Neurological: CONTACT CENTER ENGINEER II-XII intact, nl mental status, nl speech, nl strength Skin: nl turgor, other (loose), No rash or lesions Lymph: nl lymph nodes Results Result Diagram: 09/01/16 0610 09/01/16 0610 Results 24 hrs Laboratory Tests Test 08/31/16 19:05 09/01/16 06:10 Urine Color LT. YELLOW Urine Clarity CLEAR Urine pH 8.0 Urine Specific [place] 1.010 Urine Ketones 15 Urine Nitrite NEGATIVE Urine Bilirubin NEGATIVE Urine Urobilinogen 0.2 E.U./dL Urine Leukocyte Esterase NEGATIVE Urine Hemoglobin NEGATIVE Urine Glucose NEGATIVE Urine Total Protein NEGATIVE White Blood Count 11.8 H Red Blood Count 3.08 L Hemoglobin 8.4 L Hematocrit 26.0 L Mean Corpuscular Volume 84.4 Mean Corpuscular Hemoglobin 27.3 L Mean Corpuscular Hemoglobin Concent 32.3 Red Cell Distribution Width 13.1 Platelet Count 339 # Mean Platelet Volume 8.8 Neutrophils % 53.3 Lymphocytes % 21.0 Monocytes % 15.0 H Eosinophils % 9.9 H Basophils % 0.5 Nucleated Red Blood Cells % 0.0 Neutrophils # 6.3 Lymphocytes # 2.5 Monocytes # 1.8 H Eosinophils # 1.2 H Basophils # 0.1 Nucleated Red Blood Cells # 0.0 Sodium Level 138 Potassium Level 3.4 L Chloride Level 104 Carbon Dioxide Level 26 Anion Gap 11 Blood Urea Nitrogen 15 Creatinine 0.76 Glucose Level 82 Calcium Level 7.6 L Phosphorus Level 4.2 Magnesium Level 1.7 Total Bilirubin 0.2 Direct Bilirubin 0.00 Indirect Bilirubin 0.2 Aspartate Amino Transf (AST/SGOT) 12 L Alanine Aminotransferase (ALT/SGPT) 17 Alkaline Phosphatase 57 Troponin I < 0.012 Total Protein 5.6 L Albumin 2.5 L Globulin 3.10 Albumin/Globulin Ratio 0.80 Medications Medications Current Medications Lorazepam (Ativan) 0.5 mg Q6H PRN IV ANXIETY; Start 08/31/16 at 16:30 Ondansetron HCl (Zofran Inj) 4 mg Q6H PRN IV NAUSEA AND/OR VOMITING; Start at 16:30 Acetaminophen (Tylenol Tab) 650 mg Q6H PRN PO PAIN LEVEL 1-3 OR FEVER Last administered on 09/01/16 14:02; Admin Dose 650 MG; Start 08/31/16 at 16:30 Acetaminophen/ Hydrocodone Bitart ([place] (5/325)) 1 tab Q6H PRN PO PAIN LEVEL 4 -6; Start 08/31/16 at 16:30 Morphine Sulfate (morphine) 2 mg Q4H PRN IV PAIN LEVEL 7-10 Last administered on 09/01/16 15:37; Admin Dose 2 MG; Start 08/31/16 at 16:30 Pantoprazole (Protonix Iv) 40 mg BID@06,18 IV Last administered on 09/01/16 05 :58; Admin Dose 40 MG; Start 08/31/16 at 18:00 Azathioprine 50 mg 50 mg DAILY PO Last administered on 09/01/16 08:16; Admin Dose 50 MG; Start 09/01/16 at 09:00 Ferric Sodium Gluconate Complex/ Sodium Chloride (Ferrlecit/NS) 110 ml @ 100 mls/hr Q24H IVPB Last administered on 08/31/16 19:29; Admin Dose 100 MLS/HR; Start 08/31/16 at 18:00; Stop 09/02/16 at 19:05 Influenza Virus Vaccine 0.5 ml 0.5 ml ONCE ONCE IM* ; Start 09/02/16 at 09:00; Stop 09/02/16 at 09:01 Sodium Chloride (NS) 1,000 ml @ 75 mls/hr [id number] IV Last administered on 08/31t 23:31; Admin Dose 75 MLS/HR; Start 08/31/16 at 23:30 Acetaminophen (Tylenol Tab) 650 mg Q4H PRN PO ELEVATED TEMP; Start 09/01/16 at 15:30 BRANDON ZUNIGA MD Sep 01, 2016 17:39
[2016-09-01] MEDS: SOD FERRIC GLUC COMPLX 125 MG in SOD CHLORIDE 0.9% 100 ML IVPB SCH (18:15)
[2016-09-01] MEDS ORDERED: POLYETHYLENE GLYCOL 3350 119 GM POWDER PO ONE (18:30)
[2016-09-01] MEDS ORDERED: BISACODYL (EC) 5 MG TAB PO ONE (18:30)
[2016-09-01] MEDS: ONDANSETRON 4 MG INJ IV PRN (21:49)
[2016-09-02] VITALS (13 sets, daily range): BP systolic 87–117; BP diastolic 54–68; PULSE 76–102; RESP 12–19
[2016-09-02] MEDS: LORAZEPAM 2 MG INJ IV PRN (01:27)
[2016-09-02] MEDS: SOD CHLORIDE 0.9% 1,000 ML IV SCH ×3 (02:10→15:30)
[2016-09-02] MEDS: morphine 2 MG INJ IV PRN ×3 (03:33→20:04)
[2016-09-02] MEDS: PANTOPRAZOLE 40 MG INJ IV SCH ×2 (05:54→17:15)
[2016-09-02] MEDS ORDERED: POLYETHYLENE GLYCOL 3350 119 GM POWDER PO ONE (06:00)
[2016-09-02] MEDS ORDERED: BISACODYL (EC) 5 MG TAB PO ONE (08:00)
[2016-09-02 08:22] LABS: ADD SCAN DIFF NO
[2016-09-02 08:29] LABS: ABNORMAL IP MESSAGE 1; HEMATOCRIT 28.5 % (42.0-52.0); MEAN CORPUSCULAR HEMOGLOBIN 26.7 pg (29.0-33.0); MEAN CORPUSCULAR HGB CONC 31.6 g/dl (32.0-37.0); MEAN CORPUSCULAR VOLUME 84.6 fl (82.0-101.0); MEAN PLATELET VOLUME 8.7 fl (7.4-10.4); PLATELET COUNT 426 10^3/UL (140-415); RED BLOOD COUNT 3.37 10^6/ul (4.70-6.10); WHITE BLOOD COUNT 12.5 10^3/ul (4.8-10.8)
[2016-09-02 08:41] LABS: INR 1.31; PROTIME 16.4 Sec (12.2-14.2); PT RATIO 1.3
[2016-09-02 08:42] LABS: PARTIAL THROMBOPLASTIN TIME 59.6 Sec (25.0-35.0)
[2016-09-02 08:48] LABS: POTASSIUM 3.7 mmol/L (3.5-5.1)
[2016-09-02 08:50] LABS: CREATININE 0.71 mg/dl (0.61-1.24)
[2016-09-02 08:51] LABS: CALCIUM 7.9 mg/dl (8.4-10.2)
[2016-09-02] MEDS: AZATHIOPRINE 50 MG TAB PO SCH (09:00)
[2016-09-02] MEDS ORDERED: INFLUENZA VIRUS VACCINE 0.5 ML (DISPENSING) IM* ONE (09:00)
[2016-09-02] MEDS: ACETAMINOPHEN 325 MG TAB PO PRN (09:31)
[2016-09-02 10:44] LABS: BASOPHIL # 0.1 10^3/ul (0.0-0.1); EOSINOPHILS # 1.8 10^3/ul (0.0-0.5); LYMPHOCYTES # 5.5 10^3/ul (0.8-2.9); MONOCYTE # 1.4 10^3/ul (0.3-0.9); NEUTROPHIL # 2.1 10^3/ul (1.6-7.5)
[2016-09-02] MEDS ORDERED: PHYTONADIONE 10 MG/ML INJ IM ONE (11:30)
[2016-09-02] MEDS: ONDANSETRON 4 MG INJ IV PRN (13:55)
--- NOTE | 2016-09-02 14:19 | PN ---
Date/Time of Note Date/Time of Note DATE: 09/02/16 TIME: 14:17 Assessment/Plan VTE Prophylaxis VTE Prophylaxis Intervention: SCD's Lines/Catheters IV [facility]ter Type (from [facility]): Peripheral IV Urinary Cath still in place: No Assessment/Plan Chief Complaint/Hosp Course Assessment and plan 1. Reported GI bleed. Weather Anchor follow. Await recommendations. Continue on PPI medication for now. Monitor H&H. Transfuse PRBC as needed 2. Iron anemia. Continue iron supplement 3. Reported fall secondary to syncope. CT scan of the brain negative for any acute findings. Doppler of the carotid also with no acute findings. Likely secondary to anemia. Continue to monitor. 4. 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 DISPO/PLAN: Tentative plan for colonoscopy. We'll follow-up. Monitor H&H. Transfuse as needed Discussed plan of care with Dr. Romo Problems: Subjective 24 Hr Interval Summary Free Text/Dictation Patient still reports having some hematochezia. Anemia stable at this time. Exam/Review of Systems Vital Signs Vitals Vital Signs Date Time Temp Pulse Resp B/P Pulse Ox O2 Delivery O2 Flow Rate FiO2 09/02/16 08:30 98.6 77 18 107/65 97 09/02/16 01:18 Room Air Intake and Output 09/01/16 09/01/16 09/02/16 15:00 23:00 07:00 Intake Total 225 ml 700 ml 1545 ml Output Total 1 ml Balance 225 ml 699 ml 1545 ml Exam Constitutional: alert, oriented Psych: nl mood/affect, no complaints Head: atraumatic, normocephalic Eyes: nl conjunctiva ENMT: nl external ears & nose Neck: non-tender, supple Respiratory: clear to auscultation Cardiovascular: nl pulses, regular rate and rhythm Gastrointestinal: non-tender, soft Musculoskeletal: nl extremities to inspection Extremities: normal pulses Neurological: TOOLROOM KEEPER II-XII intact, nl mental status, nl speech Skin: nl turgor Results Result Diagram: 09/02/16 0800 09/02/16 0800 Results 24 hrs Laboratory Tests Test 09/02/16 08:00 White Blood Count 12.5 H Red Blood Count 3.37 L Hemoglobin 9.0 L Hematocrit 28.5 L Mean Corpuscular Volume 84.6 Mean Corpuscular Hemoglobin 26.7 L Mean Corpuscular Hemoglobin Concent 31.6 L Red Cell Distribution Width 13.0 Platelet Count 426 #H Mean Platelet Volume 8.7 Neutrophils % 17.0 L Band Neutrophils % 13.0 H Lymphocytes % 44.0 Monocytes % 11.0 Eosinophils % 14.0 H Basophils % 1.0 Neutrophils # 2.1 Lymphocytes # 5.5 H Monocytes # 1.4 H Eosinophils # 1.8 H Basophils # 0.1 Prothrombin Time 16.4 H Prothrombin Time Ratio 1.3 INR International Normalized Ratio 1.31 Activated Partial Thromboplast Time 59.6 H Sodium Level 131 L Potassium Level 3.7 Chloride Level 98 Carbon Dioxide Level 28 Anion Gap 9 Blood Urea Nitrogen 12 Creatinine 0.71 Glucose Level 96 Calcium Level 7.9 L Medications Medications Current Medications Lorazepam (Ativan) 0.5 mg Q6H PRN IV ANXIETY Last administered on 09/02/16 01: 27; Admin Dose 0.5 MG; Start 08/31/16 at 16:30 Ondansetron HCl (Zofran Inj) 4 mg Q6H PRN IV NAUSEA AND/OR VOMITING Last administered on 09/02/16 13:55; Admin Dose 4 MG; Start 08/31/16 at 16:30 Acetaminophen (Tylenol Tab) 650 mg Q6H PRN PO PAIN LEVEL 1-3 OR FEVER Last administered on 09/02/16 09:31; Admin Dose 650 MG; Start 08/31/16 at 16:30 Acetaminophen/ Hydrocodone Bitart ([place] (5/325)) 1 tab Q6H PRN PO PAIN LEVEL 4 -6; Start 08/31/16 at 16:30 Morphine Sulfate (morphine) 2 mg Q4H PRN IV PAIN LEVEL 7-10 Last administered on 09/02/16 13:56; Admin Dose 2 MG; Start 08/31/16 at 16:30 Pantoprazole (Protonix Iv) 40 mg BID@06,18 IV Last administered on 09/02/16 05 :54; Admin Dose 40 MG; Start 08/31/16 at 18:00 Azathioprine 50 mg 50 mg DAILY PO Last administered on 09/01/16 08:16; Admin Dose 50 MG; Start 09/01/16 at 09:00 Ferric Sodium Gluconate Complex 125 mg/Sodium Chloride 110 ml @ 100 mls/hr Q24H IVPB Last administered on 09/01/16 18:15; Admin Dose 100 MLS/HR; Start at 18:00; Stop 09/02/16 at 19:05 Sodium Chloride (NS) 1,000 ml @ 75 mls/hr [id number] IV Last administered on 09/02 09:25; Admin Dose 75 MLS/HR; Start 08/31/16 at 23:30 Acetaminophen (Tylenol Tab) 650 mg Q4H PRN PO ELEVATED TEMP; Start 09/01/16 at 15:30 HILLARY VALDOVINOS Sep 02, 2016 14:19
[2016-09-02] MEDS: SOD FERRIC GLUC COMPLX 125 MG in SOD CHLORIDE 0.9% 100 ML IVPB SCH (17:15)
[2016-09-02] MEDS ORDERED: FENTAnyl 50 MCG/ML VIAL ONE (17:43)
[2016-09-02] MEDS ORDERED: MIDAZOLAM 1 MG/ML 2 ML INJ ONE ×2 (17:43)
[2016-09-02] MEDS ORDERED: PROPOFOL 20 ML ONE (17:43)
[2016-09-02] MEDS ORDERED: BARIUM SULF 2% 450 ML BTL (BERRY SMOOTHIE) PO ONE (19:00)
[2016-09-02] MEDS: METHYLPREDNISOLONE 40 MG INJ IV SCH (21:00)
[2016-09-02] MEDS: MESALAMINE (SR) 250 MG CAP PO SCH (21:08)
--- NOTE | 2016-09-02 21:45 | GILP ---
DATE OF PROCEDURE: NAME OF PROCEDURE: Colonoscopy with biopsies. SURGEON: Brandon Belcher MD. PREOPERATIVE DIAGNOSIS(ES) POSTOPERATIVE DIAGNOSIS(ES) BRIEF HISTORY AND INDICATIONS: Patient with evidence of hematochezia and diarrhea. PREMEDICATION: Monitored anesthesia care by anesthesiologist. INSTRUMENT USED: Olympus colonoscope. PREPARATION: Adequate. TECHNIQUE: After informed consent, with the patient/relatives understanding the procedure, its indic ations potential risks and complications, including but not limited to: allergic reaction, bleeding, perforation, infection, missed lesions and after all pertinent questions were answered to the patie nt's satisfaction, the patient/relatives signed the witnessed informed consent. Following this, premedication was administered slowly IV push by under careful cardiovascular and re spiratory monitoring with pulse oximetry, automatic blood pressure and forklift truck operator. Once the sedativ e effect was achieved, the patient was placed in the left lateral decubitus position, digital rectal examination was performed. The colonoscope was then introduced and advanced under visual control th roughout all segments of the colon including: the rectum, sigmoid, descending colon, splenic flexure , transverse colon, hepatic flexure, ascending colon and finally reaching the cecum which was clearl y identified by transillumination, finger indentation and the ileocecal valve. Careful examination o f the mucosa of the lower gastrointestinal tract both on insertion as well as withdrawal of the inst rument disclosed the following findings: Rectal Examination: No evidence of perirectal disease, no masses. Colonic Mucosa: There was severe erythema, edema and ulceration of the mucosa that extends from the rectum to at least the mid descending colon, at which point the degree of inflammatory process decr eases remarkably; however, as we reached the transverse colon and more proximal portion of the colon , especially with the ascending colon, the process intensifies dramatically again. The ileocecal va lve was clearly identified and appears informed. Terminal ileum appears also severely inflamed. Biop sies were obtained at terminal ileum, ascending colon, transverse colon, descending colon, sigmoid c olon, and rectum. Moderate sized internal hemorrhoids are also present. The instrument was then withdrawn, the patient tolerated the procedure well and was transferred out of the Endoscopy Suite awake and in good condition to continue recovery under observation. IMPRESSION: 1. Severe colitis, universal with an area of less severity in the descending colon. 2. Ileitis. The findings appeared consistent with the possibility of inflammatory bowel disease/Cr ohn's disease. PLAN: The patient will be placed on Pentasa 1 gram q.i.d., Solu-Medrol [address] and a CT entero graphy will be obtained, IBD panel will also be obtained. Pathology will be reviewed as soon as shala ilable. Further recommendations will depend on the patient's clinical course. A stool specimen was sent for culture, sensitivity and C. diff toxin. Dictated By: BRANDON BELCHER MS/NTS Conf#: [id number] DID#: [id number] CC: Brandon Belcher;*EndCC*
[2016-09-02] MEDS: HYDROCODONE/APAP (5/325) TAB PO PRN (22:57)
[2016-09-03] MEDS: LORAZEPAM 2 MG INJ IV PRN ×2 (00:07→23:46)
[2016-09-03] MEDS: SOD CHLORIDE 0.9% 1,000 ML IV SCH ×2 (05:08→17:10)
[2016-09-03] MEDS: PANTOPRAZOLE 40 MG INJ IV SCH ×2 (05:14→17:09)
[2016-09-03 07:43] VITALS: BP 100/55; RESP 20
[2016-09-03] MEDS: morphine 2 MG INJ IV PRN ×2 (07:57→19:43)
--- NOTE | 2016-09-03 09:27 | PN ---
Date/Time of Note Date/Time of Note DATE: 09/03/16 TIME: 09:17 Assessment/Plan VTE Prophylaxis VTE Prophylaxis Intervention: SCD's Lines/Catheters IV [facility] Peripheral IV Urinary Cath still in place: No Assessment/Plan Chief Complaint/Hosp Course Problems: Assessment/Plan Assessment * Anemia acute hemoglobin 9 * S/P colonoscopy 09/03/2016 Severe colitis, universal with an area of less severity in the descending colon. Ileitis. The findings appeared consistent with the possibility of inflammatory bowel disease/Crohn's disease. GI bleed/Hematochezia * LGI bleeding: inflammatory disease * Diarrhea * inflammatory bowel disease Susanna granulomatosis Syncope ct head negative Plan * awaiting ct enterography results * monitor H and H q6 and transfuse 1 unit PRBC for hemoglobin 7.5,and 2 units if hgb less than 7 * PPI * continue present management Subjective 24 Hr Interval Summary Free Text/Dictation * course reviewed with nurse * patient seen and examined * complains of mild abdominal pain associated with bouts of bowel movement * still with hematochezia minimal * awaiting ct abdomen/pelvis * latest hemoglobin 9.0 * colonoscopy 09/03/2016 . Severe colitis, universal with an area of less severity in the descending colon. Ileitis. The findings appeared consistent with the possibility of inflammatory bowel disease/Crohn's disease. Exam/Review of Systems Vital Signs Vitals Vital Signs Date Time Temp Pulse Resp B/P Pulse Ox O2 Delivery O2 Flow Rate FiO2 09/03/16 07:43 98.8 88 20 100/55 96 09/02/16 19:29 Room Air Intake and Output 09/02/16 09/02/16 09/03/16 15:00 23:00 07:00 Intake Total 170 ml 810 ml 540 ml Balance 170 ml 810 ml 540 ml Exam Constitutional: alert, oriented Eyes: nl conjunctiva, nl sclera Neck: supple Respiratory: clear to auscultation Cardiovascular: nl pulses, regular rate and rhythm Gastrointestinal: bowel sounds, soft, tender (diffuse tenderness mild,no rebound), No distended, No firm, No rebound or guarding Musculoskeletal: nl gait and stance Extremities: normal pulses Neurological: nl mental status Results Result Diagram: 09/02/16 0800 09/02/16 0800 Medications Medications Current Medications Lorazepam (Ativan) 0.5 mg Q6H PRN IV ANXIETY Last administered on 09/03/16 00: 07; Admin Dose 0.5 MG; Start 08/31/16 at 16:30 Ondansetron HCl (Zofran Inj) 4 mg Q6H PRN IV NAUSEA AND/OR VOMITING Last administered on 09/02/16 13:55; Admin Dose 4 MG; Start 08/31/16 at 16:30 Acetaminophen (Tylenol Tab) 650 mg Q6H PRN PO PAIN LEVEL 1-3 OR FEVER Last administered on 09/02/16 09:31; Admin Dose 650 MG; Start 08/31/16 at 16:30 Acetaminophen/ Hydrocodone Bitart ([place] (5/325)) 1 tab Q6H PRN PO PAIN LEVEL 4 -6 Last administered on 09/02/16 22:57; Admin Dose 1 TAB; Start 08/31/16 at 16: 30 Morphine Sulfate (morphine) 2 mg Q4H PRN IV PAIN LEVEL 7-10 Last administered on 09/03/16 07:57; Admin Dose 2 MG; Start 08/31/16 at 16:30 Pantoprazole (Protonix Iv) 40 mg BID@06,18 IV Last administered on 09/03/16 05 :14; Admin Dose 40 MG; Start 08/31/16 at 18:00 Azathioprine 50 mg 50 mg DAILY PO Last administered on 09/01/16 08:16; Admin Dose 50 MG; Start 09/01/16 at 09:00 Sodium Chloride (NS) 1,000 ml @ 75 mls/hr [id number] IV Last administered on 09/03 05:08; Admin Dose 75 MLS/HR; Start 08/31/16 at 23:30 Acetaminophen (Tylenol Tab) 650 mg Q4H PRN PO ELEVATED TEMP; Start 09/01/16 at 15:30 Mesalamine (Pentasa) 1,000 mg QID PO Last administered on 09/02/16 21:08; Admin Dose 1,000 MG; Start 09/02/16 at 20:00 Methylprednisolone Sodium Succinate (Solu-Medrol) 40 mg Q12 IV ; Start 09/02/16 at 21:00 BRANDON ZUNIGA MD Sep 03, 2016 09:27
[2016-09-03] MEDS: AZATHIOPRINE 50 MG TAB PO SCH (10:20)
[2016-09-03] MEDS: METHYLPREDNISOLONE 40 MG INJ IV SCH ×2 (10:20→19:53)
[2016-09-03] MEDS: MESALAMINE (SR) 250 MG CAP PO SCH ×4 (10:20→19:53)
--- NOTE | 2016-09-03 11:55 | PN ---
Date/Time of Note Date/Time of Note DATE: 09/03/16 TIME: 11:55 Assessment/Plan VTE Prophylaxis VTE Prophylaxis Intervention: SCD's Lines/Catheters IV Catheter Type (from Nrs): Peripheral IV Urinary Cath still in place: No Assessment/Plan Chief Complaint/Hosp Course Assessment and plan 1. Reported GI bleed. 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 Await recommendations. Continue on PPI medication for now. Monitor H&H. Transfuse PRBC as needed 2. Iron anemia. Continue iron supplement 3. Reported fall secondary to syncope. CT scan of the brain negative for any acute findings. Doppler of the carotid also with no acute findings. Likely secondary to anemia. Continue to monitor. 4. 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 DISPO/PLAN: appears stable. transfer to med/surg. Await GI recs. cont inpatient monitoring Discussed plan of care with Dr. Romo Problems: Exam/Review of Systems Vital Signs Vitals Vital Signs Date Time Temp Pulse Resp B/P Pulse Ox O2 Delivery O2 Flow Rate FiO2 09/03/16 07:43 98.8 88 20 100/55 96 09/02/16 19:29 Room Air Intake and Output 09/02/16 09/02/16 09/03/16 15:00 23:00 07:00 Intake Total 170 ml 810 ml 540 ml Balance 170 ml 810 ml 540 ml Results Result Diagram: 09/02/16 0800 09/02/16 0800 Medications Medications Current Medications Lorazepam (Ativan) 0.5 mg Q6H PRN IV ANXIETY Last administered on 09/03/16 00: 07; Admin Dose 0.5 MG; Start 08/31/16 at 16:30 Ondansetron HCl (Zofran Inj) 4 mg Q6H PRN IV NAUSEA AND/OR VOMITING Last administered on 09/02/16 13:55; Admin Dose 4 MG; Start 08/31/16 at 16:30 Acetaminophen (Tylenol Tab) 650 mg Q6H PRN PO PAIN LEVEL 1-3 OR FEVER Last administered on 09/02/16 09:31; Admin Dose 650 MG; Start 08/31/16 at 16:30 Acetaminophen/ Hydrocodone Bitart ([place] (5/325)) 1 tab Q6H PRN PO PAIN LEVEL 4 -6 Last administered on 09/02/16 22:57; Admin Dose 1 TAB; Start 08/31/16 at 16: 30 Morphine Sulfate (morphine) 2 mg Q4H PRN IV PAIN LEVEL 7-10 Last administered on 09/03/16 07:57; Admin Dose 2 MG; Start 08/31/16 at 16:30 Pantoprazole (Protonix Iv) 40 mg BID@06,18 IV Last administered on 09/03/16 05 :14; Admin Dose 40 MG; Start 08/31/16 at 18:00 Azathioprine 50 mg 50 mg DAILY PO Last administered on 09/03/16 10:20; Admin Dose 50 MG; Start 09/01/16 at 09:00 Sodium Chloride (NS) 1,000 ml @ 75 mls/hr [id number] IV Last administered on 09/03 05:08; Admin Dose 75 MLS/HR; Start 08/31/16 at 23:30 Acetaminophen (Tylenol Tab) 650 mg Q4H PRN PO ELEVATED TEMP; Start 09/01/16 at 15:30 Mesalamine (Pentasa) 1,000 mg QID PO Last administered on 09/03/16 10:20; Admin Dose 1,000 MG; Start 09/02/16 at 20:00 Methylprednisolone Sodium Succinate 40 mg 40 mg Q12 IV Last administered on 10:20; Admin Dose 40 MG; Start 09/02/16 at 21:00 Ciprofloxacin/ Dextrose 200 ml @ 200 mls/hr Q12 IVPB ; Start 09/03/16 at 12:00 Metronidazole (Flagyl 500 Mg (Pmx)) 100 ml @ 100 mls/hr Q8 IVPB ; Start at 14:00 HILLARY VALDOVINOS Sep 03, 2016 11:55
[2016-09-03 12:10] LABS: ADD SCAN DIFF NO
[2016-09-03] MEDS ORDERED: BARIUM SULFATE 0.1% 450 ML BTL (VOLUMEN) PO ONE (12:15)
[2016-09-03 12:24] LABS: BASOPHIL # 0.1 10^3/ul (0.0-0.1); BASOPHILS % 0.4 % (0.0-2.0); EOSINOPHILS # 1.5 10^3/ul (0.0-0.5); EOSINOPHILS % 11.6 % (0.0-7.0); HEMATOCRIT 25.4 % (42.0-52.0); HEMOGLOBIN 8.2 g/dl (14.0-18.0); LYMPHOCYTES # 1.5 10^3/ul (0.8-2.9); LYMPHOCYTES % 12.2 % (15.0-51.0); MEAN CORPUSCULAR HEMOGLOBIN 27.1 pg (29.0-33.0); MEAN CORPUSCULAR HGB CONC 32.3 g/dl (32.0-37.0); MEAN CORPUSCULAR VOLUME 83.8 fl (82.0-101.0); MEAN PLATELET VOLUME 8.7 fl (7.4-10.4); MONOCYTE # 0.6 10^3/ul (0.3-0.9); MONOCYTES % 4.7 % (0.0-11.0); NEUTROPHIL # 8.8 10^3/ul (1.6-7.5); NEUTROPHILS % 70.5 % (39.0-77.0); PLATELET COUNT 368 10^3/UL (140-415); RED BLOOD COUNT 3.03 10^6/ul (4.70-6.10); RED CELL DISTRIBUTION WIDTH 13.2 % (11.5-14.5); WHITE BLOOD COUNT 12.5 10^3/ul (4.8-10.8)
[2016-09-03 12:29] LABS: POTASSIUM 3.6 mmol/L (3.5-5.1)
[2016-09-03 12:31] LABS: CREATININE 0.63 mg/dl (0.61-1.24)
[2016-09-03 12:32] LABS: CALCIUM 7.9 mg/dl (8.4-10.2)
[2016-09-03] MEDS ORDERED: IOHEXOL 100 ML ONE (13:11)
[2016-09-03] MEDS ORDERED: SOD CHLORIDE 0.9% 100 ML ONE (13:11)
[2016-09-03] MEDS ORDERED: IOHEXOL 350MG/ML 50 ML BTL ONE (13:11)
[2016-09-03] MEDS ORDERED: GLUCAGON 1 MG INJ ONE (13:24)
--- NOTE | 2016-09-03 13:36 | PN ---
Date/Time of Note Date/Time of Note DATE: 09/03/16 TIME: 13:31 Assessment/Plan VTE Prophylaxis VTE Prophylaxis Intervention: SCD's Lines/Catheters IV [facility] ([facility] [place] Urinary Cath still in place: No Assessment/Plan Chief Complaint/Hosp Course Assessment and plan 1. Reported GI bleed. Customs Verifier to follow. Patient status post EGD with severe colitis seen. Suspect IBD. We'll follow-up with pathology. Continue on PPI medication for now. Monitor H&H. Transfuse PRBC as needed 2. Iron anemia. Continue iron supplement 3. Reported fall secondary to syncope. CT scan of the brain negative for any acute findings. Doppler of the carotid also with no acute findings. Likely secondary to anemia. Continue to monitor. 4. 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 5. Severe colitis.Per colonoscopy report there was seen a severe colitis, universal with an area of less severity in the descending colon. Findings reported to be consistent with possibility of inflammatory bowel disease/Crohn' s disease. Will continue on Pentasa, Solu-Medrol per GI recommendations. Follow-up on pathology from biopsy. Continue on Cipro and Flagyl for now DISPO/PLAN: Patient for CT scan of the abdomen and pelvis. Follow-up on results. Follow-up on pathology of colonoscopy. Continue on IV antibiotics for now. Continue inpatient monitoring Discussed plan of care with Dr. Romo Problems: Subjective 24 Hr Interval Summary Free Text/Dictation Still reports having moderate abdominal pain. Exam/Review of Systems Vital Signs Vitals Vital Signs Date Time Temp Pulse Resp B/P Pulse Ox O2 Delivery O2 Flow Rate FiO2 09/03/16 07:43 98.8 88 20 100/55 96 09/02/16 19:29 Room Air Intake and Output 09/02/16 09/02/16 09/03/16 15:00 23:00 07:00 Intake Total 170 ml 810 ml 540 ml Balance 170 ml 810 ml 540 ml Exam General: Reports having some abdominal pain Eyes: Equal round reactive to light Neck: Supple nontender, no JVD Cardiac: Regular rate Pulmonary: No adventitious lung sounds GI: Tender upon palpation diffusely Extremities: No edema bilateral lower extremities Skin: CDI Neurologic: AL O 4 Results Result Diagram: 09/03/16 1205 09/03/16 1205 Results 24 hrs Laboratory Tests Test 09/03/16 12:05 White Blood Count 12.5 H Red Blood Count 3.03 L Hemoglobin 8.2 L Hematocrit 25.4 L Mean Corpuscular Volume 83.8 Mean Corpuscular Hemoglobin 27.1 L Mean Corpuscular Hemoglobin Concent 32.3 Red Cell Distribution Width 13.2 Platelet Count 368 Mean Platelet Volume 8.7 Neutrophils % 70.5 Lymphocytes % 12.2 L Monocytes % 4.7 Eosinophils % 11.6 H Basophils % 0.4 Nucleated Red Blood Cells % 0.0 Neutrophils # 8.8 H Lymphocytes # 1.5 Monocytes # 0.6 Eosinophils # 1.5 H Basophils # 0.1 Nucleated Red Blood Cells # 0.0 Sodium Level 134 L Potassium Level 3.6 Chloride Level 100 Carbon Dioxide Level 29 Anion Gap 9 Blood Urea Nitrogen 6 L Creatinine 0.63 Glucose Level 96 Calcium Level 7.9 L Medications Medications Current Medications Lorazepam (Ativan) 0.5 mg Q6H PRN IV ANXIETY Last administered on 09/03/16 00: 07; Admin Dose 0.5 MG; Start 08/31/16 at 16:30 Ondansetron HCl (Zofran Inj) 4 mg Q6H PRN IV NAUSEA AND/OR VOMITING Last administered on 09/02/16 13:55; Admin Dose 4 MG; Start 08/31/16 at 16:30 Acetaminophen (Tylenol Tab) 650 mg Q6H PRN PO PAIN LEVEL 1-3 OR FEVER Last administered on 09/02/16 09:31; Admin Dose 650 MG; Start 08/31/16 at 16:30 Acetaminophen/ Hydrocodone Bitart ([place] (5/325)) 1 tab Q6H PRN PO PAIN LEVEL 4 -6 Last administered on 09/02/16 22:57; Admin Dose 1 TAB; Start 08/31/16 at 16: 30 Morphine Sulfate (morphine) 2 mg Q4H PRN IV PAIN LEVEL 7-10 Last administered on 09/03/16 07:57; Admin Dose 2 MG; Start 08/31/16 at 16:30 Pantoprazole (Protonix Iv) 40 mg BID@06,18 IV Last administered on 09/03/16 05 :14; Admin Dose 40 MG; Start 08/31/16 at 18:00 Azathioprine 50 mg 50 mg DAILY PO Last administered on 09/03/16 10:20; Admin Dose 50 MG; Start 09/01/16 at 09:00 Sodium Chloride (NS) 1,000 ml @ 75 mls/hr [id number] IV Last administered on 09/03 05:08; Admin Dose 75 MLS/HR; Start 08/31/16 at 23:30 Acetaminophen (Tylenol Tab) 650 mg Q4H PRN PO ELEVATED TEMP; Start 09/01/16 at 15:30 Mesalamine (Pentasa) 1,000 mg QID PO Last administered on 09/03/16 10:20; Admin Dose 1,000 MG; Start 09/02/16 at 20:00 Methylprednisolone Sodium Succinate 40 mg 40 mg Q12 IV Last administered on 10:20; Admin Dose 40 MG; Start 09/02/16 at 21:00 Ciprofloxacin/ Dextrose 200 ml @ 200 mls/hr Q12 IVPB ; Start 09/03/16 at 12:00 Metronidazole (Flagyl 500 Mg (Pmx)) 100 ml @ 100 mls/hr Q8 IVPB ; Start at 14:00 HILLARY VALDOVINOS Sep 03, 2016 13:35
[2016-09-03] MEDS: CIPROFLOXACIN 400MG/D5W 200 ML IVPB SCH ×2 (14:38→23:00)
[2016-09-03] MEDS: metroNIDAZOLE 500 MG/NS (PMX) 100 ML IVPB SCH ×2 (14:40→23:49)
--- NOTE | 2016-09-03 17:17 | RADRPT ---
PROCEDURE: CT Abdomen and Pelvis with and without contrast CLINICAL INDICATION: Inflammatory bowel disease, rule out Crohn's TECHNIQUE: Transaxial images were obtained through the abdomen on a multi-slice scanner prior to t he administration of contrast, and then through the abdomen and pelvis following the intravenous adm inistration of iodinated contrast at both arterial and portal venous phase. Water had previously bee n given orally. Sagittal and coronal re-formations were subsequently reconstructed. One or more of the following dose reduction techniques were used: - Automated exposure control. - Adjustment of the mA and/or kV according to patient size. - Use of iterative reconstruction technique. Radiation dose: CTDIvol = 29.2 mGy; DLP = 1669.39 mGy-cm. COMPARISON: No prior studies are available for comparison. FINDINGS: Lung bases: The visualized lung bases appear unremarkable. Liver: The liver is mildly enlarged with no focal lesion evident. The hepatic and portal veins are patent. Gallbladder: The wall is not thickened. No radiopaque stones are identified. Bile ducts: The intra and extrahepatic bile ducts are normal in caliber. Pancreas: Appears normal with no mass or inflammation evident. Spleen: Normal in size with no focal lesion. Adrenals: Normal with no mass identified. Kidneys, ureters and bladder: The kidneys enhance normally and are normal in size and there is no ma ss, pathological calcification, or hydronephrosis evident. There is no perinephric stranding. The ur eters are normal in caliber and no ureteroliths are identified. The bladder appears unremarkable. Reproductive organs: The prostate is not enlarged. Stomach, bowel, and mesentery: There is a small hiatal hernia. There is no evidence of bowel obstru ction. There is diffuse non organized fluid distension of segments of small bowel. There is bowel w all thickening involving the entire colon. Appendix: The vermiform appendix is tentatively identified and is prominent in caliber with air seen in the lumen. Peritoneum: There is a small amount of free intraperitoneal fluid most evident at the subhepatic spa ce and within the anterior pelvis bilaterally. No free air is identified. Aorta: Normal in caliber with no aneurysmal dilatation. IVC: Unremarkable. Lymph nodes: A 1.1 cm node is seen to the left of the abdominal aorta at the level of the inferior L 3. Osseous structures: The osseous elements appear intact with mild degenerative endplate changes seen to the inferior thoracic spine. There is bilateral sacroiliitis. IMPRESSION: 1. There is bowel wall thickening with increased enhancement involving the entire colon and rectum. These findings are most suggestive of ulcerative colitis. Fluid is seen through non organized seg ments of small bowel. There is a small hiatal hernia. The appendix is prominent in caliber with air seen in the lumen. 2. There is a small amount of free intraperitoneal fluid with no free air evident. 3. Hepatomegaly with no focal lesion. 4. A 1.1 cm retroperitoneal node is seen to the left of the abdominal aorta at the level of the inf erior L3. 5. Bilateral sacroiliitis Physician Jn Date Time Electronically viewed and signed by Physician Jn on 09/03/2016 17:17 /
[2016-09-03 20:13] VITALS: BP 98/55; RESP 19
[2016-09-04] MEDS: HYDROCODONE/APAP (5/325) TAB PO PRN ×2 (01:40→13:24)
[2016-09-04] MEDS: PANTOPRAZOLE 40 MG INJ IV SCH ×2 (05:35→17:33)
[2016-09-04] MEDS: metroNIDAZOLE 500 MG/NS (PMX) 100 ML IVPB SCH ×3 (05:35→22:20)
[2016-09-04 06:04] LABS: ADD SCAN DIFF NO
[2016-09-04 06:14] LABS: HEMOGLOBIN 7.6 g/dl (14.0-18.0); MEAN CORPUSCULAR HEMOGLOBIN 27.2 pg (29.0-33.0); MEAN CORPUSCULAR VOLUME 82.4 fl (82.0-101.0); MEAN PLATELET VOLUME 8.8 fl (7.4-10.4); PLATELET COUNT 403 10^3/UL (140-415); RED BLOOD COUNT 2.79 10^6/ul (4.70-6.10); RED CELL DISTRIBUTION WIDTH 12.8 % (11.5-14.5)
[2016-09-04 06:16] LABS: POTASSIUM 3.6 mmol/L (3.5-5.1)
[2016-09-04 06:18] LABS: CREATININE 0.62 mg/dl (0.61-1.24)
[2016-09-04 06:19] LABS: CALCIUM 8.1 mg/dl (8.4-10.2)
[2016-09-04 07:40] VITALS: BP 98/56; RESP 18
[2016-09-04] MEDS: AZATHIOPRINE 50 MG TAB PO SCH (08:10)
[2016-09-04] MEDS: METHYLPREDNISOLONE 40 MG INJ IV SCH ×2 (08:10→22:21)
[2016-09-04] MEDS: MESALAMINE (SR) 250 MG CAP PO SCH ×4 (08:10→22:21)
[2016-09-04 08:11] LABS: LYMPHOCYTES # 1.4 10^3/ul (0.8-2.9); MONOCYTE # 0.3 10^3/ul (0.3-0.9); NEUTROPHIL # 6.9 10^3/ul (1.6-7.5)
[2016-09-04] MEDS: SOD CHLORIDE 0.9% 1,000 ML IV SCH ×2 (08:13→20:24)
[2016-09-04] MEDS: CIPROFLOXACIN 400MG/D5W 200 ML IVPB SCH ×2 (08:13→20:24)
--- NOTE | 2016-09-04 10:32 | PN ---
Date/Time of Note Date/Time of Note DATE: 09/04/16 TIME: 10:16 Assessment/Plan VTE Prophylaxis VTE Prophylaxis Intervention: SCD's Lines/Catheters IV C[facility]ter Type (from [facility] Peripheral IV Urinary Cath still in place: No Assessment/Plan Chief Complaint/Hosp Course Problems: Assessment/Plan Assessment * Anemia acute hemoglobin 7.6 * S/P colonoscopy 09/03/2016 Severe colitis, universal with an area of less severity in the descending colon. Ileitis. The findings appeared consistent with the possibility of inflammatory bowel disease/Crohn's disease. GI bleed/Hematochezia * LGI bleeding: inflammatory disease Diarrhea * inflammatory bowel disease S/P CT enterography 09/03/2016 1. There is bowel wall thickening with increased enhancement involving the entire colon and rectum. These findings are most suggestive of ulcerative colitis. Fluid is seen through non organized segments of small bowel. There is a small hiatal hernia. The appendix is prominent in caliber with air seen in the lumen. 2. There is a small amount of free intraperitoneal fluid with no free air evident. 3. Hepatomegaly with no focal lesion. 4. A 1.1 cm retroperitoneal node is seen to the left of the abdominal aorta at the level of the inferior L3. 5. Bilateral sacroiliitis Susanna granulomatosis Syncope ct head negative Plan * monitor H and H q6 and transfuse 1 unit PRBC for hemoglobin 7.5,and 2 units if hgb less than 7 * PPI * continue present management Subjective 24 Hr Interval Summary Free Text/Dictation course reviewed with nurse * patient seen and examined * complains of mild abdominal pain associated with bouts of bowel movement * still with hematochezia minimal * CT enterography 09/03/2016 * There is bowel wall thickening with increased enhancement involving the entire colon and rectum. These findings are most suggestive of ulcerative colitis. * Fluid is seen through non organized segments of small bowel. * There is a small hiatal hernia. The appendix is prominent in caliber with air seen in the lumen * .. There is a small amount of free intraperitoneal fluid with no free air evident. * Hepatomegaly with no focal lesion. * A 1.1 cm retroperitoneal node is seen to the left of the abdominal aorta at the level of the inferior L3. * Bilateral sacroiliitis * latest hemoglobin 7.6 * colonoscopy 09/03/2016 . Severe colitis, universal with an area of less severity in the descending colon. Ileitis. The findings appeared consistent with the possibility of inflammatory bowel disease/Crohn's disease. Exam/Review of Systems Vital Signs Vitals Vital Signs Date Time Temp Pulse Resp B/P Pulse Ox O2 Delivery O2 Flow Rate FiO2 09/04/16 07:40 97.6 61 18 98/56 97 09/02/16 19:29 Room Air Intake and Output 09/03/16 09/03/16 09/04/16 15:00 23:00 07:00 Intake Total 150 ml 2080 ml 1430 ml Balance 150 ml 2080 ml 1430 ml Exam Constitutional: alert, well developed Neck: supple Respiratory: clear to auscultation, normal air movement Cardiovascular: nl pulses, regular rate and rhythm Gastrointestinal: soft, tender (diffuse, no rebound), No distended, No firm, No rebound or guarding Results Result Diagram: 09/04/16 0528 09/04/16 0528 Results 24 hrs Laboratory Tests Test 09/03/16 12:05 09/04/16 05:28 White Blood Count 12.5 H 10.0 Red Blood Count 3.03 L 2.79 L Hemoglobin 8.2 L 7.6 L Hematocrit 25.4 L 23.0 L Mean Corpuscular Volume 83.8 82.4 Mean Corpuscular Hemoglobin 27.1 L 27.2 L Mean Corpuscular Hemoglobin Concent 32.3 33.0 Red Cell Distribution Width 13.2 12.8 Platelet Count 368 403 Mean Platelet Volume 8.7 8.8 Neutrophils % 70.5 69.0 Lymphocytes % 12.2 L 14.0 L Monocytes % 4.7 3.0 Eosinophils % 11.6 H Basophils % 0.4 Nucleated Red Blood Cells % 0.0 Neutrophils # 8.8 H 6.9 Lymphocytes # 1.5 1.4 Monocytes # 0.6 0.3 Eosinophils # 1.5 H Basophils # 0.1 Nucleated Red Blood Cells # 0.0 Sodium Level 134 L 138 Potassium Level 3.6 3.6 Chloride Level 100 103 Carbon Dioxide Level 29 29 Anion Gap 9 10 Blood Urea Nitrogen 6 L 11 Creatinine 0.63 0.62 Glucose Level 96 194 Calcium Level 7.9 L 8.1 L Band Neutrophils % 14.0 H Medications Medications Current Medications Lorazepam (Ativan) 0.5 mg Q6H PRN IV ANXIETY Last administered on 09/03/16 23: 46; Admin Dose 0.5 MG; Start 08/31/16 at 16:30 Ondansetron HCl (Zofran Inj) 4 mg Q6H PRN IV NAUSEA AND/OR VOMITING Last administered on 09/02/16 13:55; Admin Dose 4 MG; Start 08/31/16 at 16:30 Acetaminophen (Tylenol Tab) 650 mg Q6H PRN PO PAIN LEVEL 1-3 OR FEVER Last administered on 09/02/16 09:31; Admin Dose 650 MG; Start 08/31/16 at 16:30 Acetaminophen/ Hydrocodone Bitart ([place] (5/325)) 1 tab Q6H PRN PO PAIN LEVEL 4 -6 Last administered on 09/04/16 01:40; Admin Dose 1 TAB; Start 08/31/16 at 16: 30 Morphine Sulfate (morphine) 2 mg Q4H PRN IV PAIN LEVEL 7-10 Last administered on 09/03/16 19:43; Admin Dose 2 MG; Start 08/31/16 at 16:30 Pantoprazole (Protonix Iv) 40 mg BID@06,18 IV Last administered on 09/04/16 05 :35; Admin Dose 40 MG; Start 08/31/16 at 18:00 Azathioprine 50 mg 50 mg DAILY PO Last administered on 09/04/16 08:10; Admin Dose 50 MG; Start 09/01/16 at 09:00 Sodium Chloride (NS) 1,000 ml @ 75 mls/hr [id number] IV Last administered on 09/04 08:13; Admin Dose 75 MLS/HR; Start 08/31/16 at 23:30 Acetaminophen (Tylenol Tab) 650 mg Q4H PRN PO ELEVATED TEMP; Start 09/01/16 at 15:30 Mesalamine (Pentasa) 1,000 mg QID PO Last administered on 09/04/16 08:10; Admin Dose 1,000 MG; Start 09/02/16 at 20:00 Methylprednisolone Sodium Succinate 40 mg 40 mg Q12 IV Last administered on 08:10; Admin Dose 40 MG; Start 09/02/16 at 21:00 Ciprofloxacin/ Dextrose 200 ml @ 200 mls/hr Q12 IVPB Last administered on 09/03 14:38; Admin Dose 200 MLS/HR; Start 09/03/16 at 12:00 Metronidazole (Flagyl 500 Mg (Pmx)) 100 ml @ 100 mls/hr Q8 IVPB Last administered on 09/04/16t 05:35; Admin Dose 100 MLS/HR; Start 09/03/16 at 14:00 BRANDON ZUNIGA MD Sep 04, 2016 10:27
[2016-09-04 12:56] LABS: HEMATOCRIT 27.1 % (42.0-52.0); HEMOGLOBIN 8.5 g/dl (14.0-18.0)
[2016-09-04 13:22] LABS: MYELOPEROXIDASE ANTIBODY <1.0 AI; PROTEINASE-3 ANTIBODY 4.3 AI
[2016-09-04] MEDS: LORAZEPAM 2 MG INJ IV PRN (13:24)
--- NOTE | 2016-09-04 14:16 | PN ---
Date/Time of Note Date/Time of Note DATE: 09/04/16 TIME: 14:07 Assessment/Plan VTE Prophylaxis VTE Prophylaxis Intervention: SCD's Lines/Catheters IV [facility] Type (from [facility]): Peripheral IV Urinary Cath still in place: No Assessment/Plan Chief Complaint/Hosp Course Assessment and plan 1. Reported GI bleed. 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 Patient status post EGD with severe colitis seen. Suspect IBD. We'll follow-up with pathology. Continue on PPI medication for now. Monitor H&H. Transfuse PRBC as needed. Still reports having bloody stool 2. Iron anemia. Continue iron supplement 3. Reported fall secondary to syncope. CT scan of the brain negative for any acute findings. Doppler of the carotid also with no acute findings. Likely secondary to anemia. Continue to monitor. 4. 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 5. Severe colitis.Per colonoscopy report there was seen a severe colitis, universal with an area of less severity in the descending colon. Findings reported to be consistent with possibility of inflammatory bowel disease/Crohn' s disease. Will continue on Pentasa, Solu-Medrol per GI recommendations. Follow-up on pathology from biopsy. Continue on Cipro and Flagyl for now CT scan of the abdomen did show bowel wall thickening increased enhancement involving the entire colon and rectum. Findings were suggestive of ulcerative colitis. Continue with GI recommendations DISPO/PLAN: Continue to monitor serial H&H. Transfuse PRBC as needed. Continue on mesalamine. Still noted to be anemic Monitor for clinical improvement. Discharge when medically stable Discussed plan of care with Dr. Romo Problems: Subjective 24 Hr Interval Summary Free Text/Dictation Still reports having some abdominal discomfort. Exam/Review of Systems Vital Signs Vitals Vital Signs Date Time Temp Pulse Resp B/P Pulse Ox O2 Delivery O2 Flow Rate FiO2 09/04/16 07:40 97.6 61 18 98/56 97 09/02/16 19:29 Room Air Intake and Output 09/03/16 09/03/16 09/04/16 14:59 22:59 06:59 Intake Total 2230 ml 1430 ml Balance 2230 ml 1430 ml Exam General: Reports having abdominal discomfort more notable when eating Eyes: pupils equal round, Anicteric sclera Neck: Supple nontender, no JVD Cardiac: Regular rate Pulmonary: No wheezing GI: Minimally tender on palpation Extremities: No edema bilateral lower extremities Skin: Clean dry and intact Neurologic: Alert to person place and time and situation Results Result Diagram: 09/04/16 1232 09/04/16 0528 Results 24 hrs Laboratory Tests Test 09/04/16 05:28 09/04/16 12:32 White Blood Count 10.0 Red Blood Count 2.79 L Hemoglobin 7.6 L 8.5 L Hematocrit 23.0 L 27.1 L Mean Corpuscular Volume 82.4 Mean Corpuscular Hemoglobin 27.2 L Mean Corpuscular Hemoglobin Concent 33.0 Red Cell Distribution Width 12.8 Platelet Count 403 Mean Platelet Volume 8.8 Neutrophils % 69.0 Band Neutrophils % 14.0 H Lymphocytes % 14.0 L Monocytes % 3.0 Eosinophils % Neutrophils # 6.9 Lymphocytes # 1.4 Monocytes # 0.3 Eosinophils # Sodium Level 138 Potassium Level 3.6 Chloride Level 103 Carbon Dioxide Level 29 Anion Gap 10 Blood Urea Nitrogen 11 Creatinine 0.62 Glucose Level 194 Calcium Level 8.1 L Medications Medications Current Medications Lorazepam (Ativan) 0.5 mg Q6H PRN IV ANXIETY Last administered on 09/04/16 13: 24; Admin Dose 0.5 MG; Start 08/31/16 at 16:30 Ondansetron HCl (Zofran Inj) 4 mg Q6H PRN IV NAUSEA AND/OR VOMITING Last administered on 09/02/16 13:55; Admin Dose 4 MG; Start 08/31/16 at 16:30 Acetaminophen (Tylenol Tab) 650 mg Q6H PRN PO PAIN LEVEL 1-3 OR FEVER Last administered on 09/02/16 09:31; Admin Dose 650 MG; Start 08/31/16 at 16:30 Acetaminophen/ Hydrocodone Bitart ([place] (5/325)) 1 tab Q6H PRN PO PAIN LEVEL 4 -6 Last administered on 09/04/16 13:24; Admin Dose 1 TAB; Start 08/31/16 at 16: 30 Morphine Sulfate (morphine) 2 mg Q4H PRN IV PAIN LEVEL 7-10 Last administered on 09/03/16 19:43; Admin Dose 2 MG; Start 08/31/16 at 16:30 Pantoprazole (Protonix Iv) 40 mg BID@06,18 IV Last administered on 09/04/16 05 :35; Admin Dose 40 MG; Start 08/31/16 at 18:00 Azathioprine 50 mg 50 mg DAILY PO Last administered on 09/04/16 08:10; Admin Dose 50 MG; Start 09/01/16 at 09:00 Sodium Chloride (NS) 1,000 ml @ 75 mls/hr [id number] IV Last administered on 09/04 08:13; Admin Dose 75 MLS/HR; Start 08/31/16 at 23:30 Acetaminophen (Tylenol Tab) 650 mg Q4H PRN PO ELEVATED TEMP; Start 09/01/16 at 15:30 Mesalamine (Pentasa) 1,000 mg QID PO Last administered on 09/04/16 12:26; Admin Dose 1,000 MG; Start 09/02/16 at 20:00 Methylprednisolone Sodium Succinate 40 mg 40 mg Q12 IV Last administered on 08:10; Admin Dose 40 MG; Start 09/02/16 at 21:00 Ciprofloxacin/ Dextrose 200 ml @ 200 mls/hr Q12 IVPB Last administered on 09/03 14:38; Admin Dose 200 MLS/HR; Start 09/03/16 at 12:00 Metronidazole (Flagyl 500 Mg (Pmx)) 100 ml @ 100 mls/hr Q8 IVPB Last administered on 09/04/16 13:51; Admin Dose 100 MLS/HR; Start 09/03/16 at 14:00 HILLARY VALDOVINOS Sep 04, 2016 14:16
[2016-09-04 18:08] LABS: HEMATOCRIT 23.9 % (42.0-52.0); HEMOGLOBIN 8.1 g/dl (14.0-18.0)
[2016-09-04 20:36] VITALS: BP 111/59; RESP 18
[2016-09-05] MEDS: LORAZEPAM 2 MG INJ IV PRN (00:42)
[2016-09-05] MEDS: SOD CHLORIDE 0.9% 1,000 ML IV SCH ×4 (00:49→23:30)
[2016-09-05 01:08] LABS: HEMOGLOBIN 7.7 g/dl (14.0-18.0)
[2016-09-05 05:12] LABS: ADD SCAN DIFF NO
[2016-09-05 05:28] LABS: BASOPHILS % 0.1 % (0.0-2.0); HEMATOCRIT 24.1 % (42.0-52.0); HEMOGLOBIN 7.8 g/dl (14.0-18.0); LYMPHOCYTES # 1.5 10^3/ul (0.8-2.9); LYMPHOCYTES % 10.6 % (15.0-51.0); MEAN CORPUSCULAR HEMOGLOBIN 27.4 pg (29.0-33.0); MEAN CORPUSCULAR HGB CONC 32.4 g/dl (32.0-37.0); MEAN CORPUSCULAR VOLUME 84.6 fl (82.0-101.0); MEAN PLATELET VOLUME 9.3 fl (7.4-10.4); MONOCYTE # 0.4 10^3/ul (0.3-0.9); NEUTROPHIL # 12.2 10^3/ul (1.6-7.5); NEUTROPHILS % 85.5 % (39.0-77.0); PLATELET COUNT 405 10^3/UL (140-415); POTASSIUM 3.9 mmol/L (3.5-5.1); RED BLOOD COUNT 2.85 10^6/ul (4.70-6.10); RED CELL DISTRIBUTION WIDTH 13.2 % (11.5-14.5); WHITE BLOOD COUNT 14.3 10^3/ul (4.8-10.8)
[2016-09-05 05:31] LABS: CREATININE 0.61 mg/dl (0.61-1.24)
[2016-09-05 05:32] LABS: CALCIUM 8.4 mg/dl (8.4-10.2)
[2016-09-05] MEDS: metroNIDAZOLE 500 MG/NS (PMX) 100 ML IVPB SCH ×2 (06:19→14:00)
[2016-09-05] MEDS: PANTOPRAZOLE 40 MG INJ IV SCH ×2 (06:19→17:35)
[2016-09-05 07:59] VITALS: BP 106/62; RESP 20
[2016-09-05] MEDS: CIPROFLOXACIN 400MG/D5W 200 ML IVPB SCH (08:09)
[2016-09-05] MEDS: MESALAMINE (SR) 250 MG CAP PO SCH ×4 (09:11→20:24)
[2016-09-05] MEDS: METHYLPREDNISOLONE 40 MG INJ IV SCH ×2 (09:11→20:24)
[2016-09-05] MEDS: AZATHIOPRINE 50 MG TAB PO SCH (09:11)
[2016-09-05] MEDS: ONDANSETRON 4 MG INJ IV PRN (11:53)
[2016-09-05 12:54] LABS: HEMATOCRIT 26.4 % (42.0-52.0); HEMOGLOBIN 8.6 g/dl (14.0-18.0)
--- NOTE | 2016-09-05 12:54 | CONS ---
Date/Time of Note Date/Time of Note DATE: 09/05/16 TIME: 12:44 Assessment/Plan Assessment/Plan Additional Assessment/Plan Hematochezia Likely secondary to ulcerative colitis, new diagnosis Monitor H&H every 8 hours, transfuse 2 units for hemoglobin less than 7.[address] enterography 09/03/2016: 1. There is bowel wall thickening with increased enhancement involving the entire colon and rectum. These findings are most suggestive of ulcerative colitis. Fluid is seen through non organized segments of small bowel. There is a small hiatal hernia. The appendix is prominent in caliber with air seen in the lumen. Status post colonoscopy: Severe colitis, universal with an area of less severity in the descending colon. Ileitis. The findings appeared consistent with the possibility of inflammatory bowel disease/Crohn's disease. Continue treatment with Pentasa Recommend outpatient follow-up with GI History of syncope Management per Primary CT head, negative Resolved Further recommendations depend on clinical course Patient seen in collaboration with Dr. Belcher Consultation Date/Type/Reason Admit Date/Time Sep 02, 2016 at 11:32 Initial Consult Date Type of Consultation: Gastroenterology 24 HR Interval Summary Free Text/Dictation Tolerating diet Hemoglobin stable Exam/Review of Systems Vital Signs Vitals Vital Signs Date Time Temp Pulse Resp B/P Pulse Ox O2 Delivery O2 Flow Rate FiO2 09/05/16 07:59 98.0 66 20 106/62 100 09/02/16 19:29 Room Air Intake and Output 09/04/16 09/04/16 09/05/16 15:00 23:00 07:00 Intake Total 850 ml 1560 ml 1800 ml Balance 850 ml 1560 ml 1800 ml Exam Constitutional: alert, oriented, well developed Psych: nl mood/affect Head: normocephalic Eyes: EOMI, nl conjunctiva, nl lids ENMT: nl external ears & nose, nl lips & teeth, nl nasal mucosa & septum Respiratory: clear to auscultation, normal air movement Cardiovascular: regular rate and rhythm Gastrointestinal: soft, lower abdominal tenderness Musculoskeletal: nl extremities to inspection Neurological: MOLDER VACUUM II-XII intact Results Result Diagram: 09/05/16 0430 09/05/16 0430 Results 24 hrs Laboratory Tests Test 09/04/16 17:43 09/05/16 00:53 09/05/16 04:30 Hemoglobin 8.1 L 7.7 L 7.8 L Hematocrit 23.9 L 24.0 L 24.1 L White Blood Count 14.3 #H Red Blood Count 2.85 L Mean Corpuscular Volume 84.6 Mean Corpuscular Hemoglobin 27.4 L Mean Corpuscular Hemoglobin Concent 32.4 Red Cell Distribution Width 13.2 Platelet Count 405 Mean Platelet Volume 9.3 Neutrophils % 85.5 H Lymphocytes % 10.6 L Monocytes % 3.0 Eosinophils % 0.0 Basophils % 0.1 Nucleated Red Blood Cells % 0.0 Neutrophils # 12.2 H Lymphocytes # 1.5 Monocytes # 0.4 Eosinophils # 0.0 Basophils # 0.0 Nucleated Red Blood Cells # 0.0 Sodium Level 139 Potassium Level 3.9 Chloride Level 104 Carbon Dioxide Level 27 Anion Gap 12 Blood Urea Nitrogen 10 Creatinine 0.61 Glucose Level 156 Calcium Level 8.4 Medications Medications Current Medications Lorazepam (Ativan) 0.5 mg Q6H PRN IV ANXIETY Last administered on 09/05/16 00: 42; Admin Dose 0.5 MG; Start 08/31/16 at 16:30 Ondansetron HCl (Zofran Inj) 4 mg Q6H PRN IV NAUSEA AND/OR VOMITING Last administered on 09/05/16 11:53; Admin Dose 4 MG; Start 08/31/16 at 16:30 Acetaminophen (Tylenol Tab) 650 mg Q6H PRN PO PAIN LEVEL 1-3 OR FEVER Last administered on 09/02/16 09:31; Admin Dose 650 MG; Start 08/31/16 at 16:30 Acetaminophen/ Hydrocodone Bitart ([place] (5/325)) 1 tab Q6H PRN PO PAIN LEVEL 4 -6 Last administered on 09/04/16 13:24; Admin Dose 1 TAB; Start 08/31/16 at 16: 30 Morphine Sulfate (morphine) 2 mg Q4H PRN IV PAIN LEVEL 7-10 Last administered on 09/03/16 19:43; Admin Dose 2 MG; Start 08/31/16 at 16:30 Pantoprazole (Protonix Iv) 40 mg BID@06,18 IV Last administered on 09/05/16 06 :19; Admin Dose 40 MG; Start 08/31/16 at 18:00 Azathioprine 50 mg 50 mg DAILY PO Last administered on 09/05/16 09:11; Admin Dose 50 MG; Start 09/01/16 at 09:00 Sodium Chloride (NS) 1,000 ml @ 75 mls/hr [id number] IV Last administered on 09/05 00:49; Admin Dose 75 MLS/HR; Start 08/31/16 at 23:30 Acetaminophen (Tylenol Tab) 650 mg Q4H PRN PO ELEVATED TEMP; Start 09/01/16 at 15:30 Mesalamine (Pentasa) 1,000 mg QID PO Last administered on 09/05/16 09:11; Admin Dose 1,000 MG; Start 09/02/16 at 20:00 Methylprednisolone Sodium Succinate 40 mg 40 mg Q12 IV Last administered on 09:11; Admin Dose 40 MG; Start 09/02/16 at 21:00 Metronidazole (Flagyl 500 Mg (Pmx)) 100 ml @ 100 mls/hr Q8 IVPB Last administered on 09/05/16 06:19; Admin Dose 100 MLS/HR; Start 09/03/16 at 14:00 SLADE MENESES Sep 05, 2016 12:54
[2016-09-05] MEDS: morphine 2 MG INJ IV PRN ×2 (13:59→22:11)
--- NOTE | 2016-09-05 15:10 | PN ---
Date/Time of Note Date/Time of Note DATE: 09/05/16 TIME: 15:04 Assessment/Plan VTE Prophylaxis VTE Prophylaxis Intervention: SCD's Lines/Catheters IV Catheter Type (from Nrs): Peripheral IV Urinary Cath still in place: No Assessment/Plan Chief Complaint/Hosp Course Assessment and plan 1. 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 Patient status post EGD with severe colitis seen. Suspect IBD. We'll follow-up with pathology. Continue on PPI medication for now. . Transfuse PRBC as needed. cont serial H&H monitoring 2. Iron anemia. Continue iron supplement 3. Reported fall secondary to syncope. CT scan of the brain negative for any acute findings. Doppler of the carotid also with no acute findings. Likely secondary to anemia. Continue to monitor. improved 4. 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 5. Severe colitis.Per colonoscopy report there was seen a severe colitis, universal with an area of less severity in the descending colon. Findings reported to be consistent with possibility of inflammatory bowel disease/Crohn' s disease. Will continue on Pentasa, Solu-Medrol per GI recommendations. Follow-up on pathology from biopsy. Continue on Cipro and Flagyl for now CT scan of the abdomen did show bowel wall thickening increased enhancement involving the entire colon and rectum. Findings were suggestive of ulcerative colitis. Continue with GI recommendations. Await clinical improvement DISPO/PLAN: cont messalamine. still anemic. monitor level. Discharge when medically stable and cleared by consultants Discussed plan of care with Dr. Romo Problems: Subjective 24 Hr Interval Summary Free Text/Dictation still reports some abd pain Exam/Review of Systems Vital Signs Vitals Vital Signs Date Time Temp Pulse Resp B/P Pulse Ox O2 Delivery O2 Flow Rate FiO2 09/05/16 07:59 98.0 66 20 106/62 100 09/02/16 19:29 Room Air Intake and Output 09/04/16 09/04/16 09/05/16 14:59 22:59 06:59 Intake Total 850 ml 1560 ml 1800 ml Balance 850 ml 1560 ml 1800 ml Exam General: less abd pain today Eyes: pupils equal round, Anicteric sclera Neck: Supple nontender, no JVD Cardiac: Regular rate Pulmonary: No wheezing GI: less tender on palpation Extremities: No edema bilateral lower extremities Skin: Clean dry and intact Neurologic: Alert to person place and time and situation Results Result Diagram: 09/05/16 1240 09/05/16 0430 Results 24 hrs Laboratory Tests Test 09/04/16 17:43 09/05/16 00:53 09/05/16 04:30 09/05/16 12:40 Hemoglobin 8.1 L 7.7 L 7.8 L 8.6 L Hematocrit 23.9 L 24.0 L 24.1 L 26.4 L White Blood Count 14.3 #H Red Blood Count 2.85 L Mean Corpuscular Volume 84.6 Mean Corpuscular Hemoglobin 27.4 L Mean Corpuscular Hemoglobin Concent 32.4 Red Cell Distribution Width 13.2 Platelet Count 405 Mean Platelet Volume 9.3 Neutrophils % 85.5 H Lymphocytes % 10.6 L Monocytes % 3.0 Eosinophils % 0.0 Basophils % 0.1 Nucleated Red Blood Cells % 0.0 Neutrophils # 12.2 H Lymphocytes # 1.5 Monocytes # 0.4 Eosinophils # 0.0 Basophils # 0.0 Nucleated Red Blood Cells # 0.0 Sodium Level 139 Potassium Level 3.9 Chloride Level 104 Carbon Dioxide Level 27 Anion Gap 12 Blood Urea Nitrogen 10 Creatinine 0.61 Glucose Level 156 Calcium Level 8.4 Medications Medications Current Medications Lorazepam (Ativan) 0.5 mg Q6H PRN IV ANXIETY Last administered on 09/05/16 00: 42; Admin Dose 0.5 MG; Start 08/31/16 at 16:30 Ondansetron HCl (Zofran Inj) 4 mg Q6H PRN IV NAUSEA AND/OR VOMITING Last administered on 09/05/16 11:53; Admin Dose 4 MG; Start 08/31/16 at 16:30 Acetaminophen (Tylenol Tab) 650 mg Q6H PRN PO PAIN LEVEL 1-3 OR FEVER Last administered on 09/02/16 09:31; Admin Dose 650 MG; Start 08/31/16 at 16:30 Acetaminophen/ Hydrocodone Bitart ([place] (5/325)) 1 tab Q6H PRN PO PAIN LEVEL 4 -6 Last administered on 09/04/16 13:24; Admin Dose 1 TAB; Start 08/31/16 at 16: 30 Morphine Sulfate (morphine) 2 mg Q4H PRN IV PAIN LEVEL 7-10 Last administered on 09/05/16 13:59; Admin Dose 2 MG; Start 08/31/16 at 16:30 Pantoprazole (Protonix Iv) 40 mg BID@06,18 IV Last administered on 09/05/16 06 :19; Admin Dose 40 MG; Start 08/31/16 at 18:00 Azathioprine 50 mg 50 mg DAILY PO Last administered on 09/05/16 09:11; Admin Dose 50 MG; Start 09/01/16 at 09:00 Sodium Chloride (NS) 1,000 ml @ 75 mls/hr [id number] IV Last administered on 09/05 00:49; Admin Dose 75 MLS/HR; Start 08/31/16 at 23:30 Acetaminophen (Tylenol Tab) 650 mg Q4H PRN PO ELEVATED TEMP; Start 09/01/16 at 15:30 Mesalamine (Pentasa) 1,000 mg QID PO Last administered on 09/05/16 13:59; Admin Dose 1,000 MG; Start 09/02/16 at 20:00 Methylprednisolone Sodium Succinate 40 mg 40 mg Q12 IV Last administered on 09:11; Admin Dose 40 MG; Start 09/02/16 at 21:00 Metronidazole (Flagyl 500 Mg (Pmx)) 100 ml @ 100 mls/hr Q8 IVPB Last administered on 09/05/16 14:00; Admin Dose 100 MLS/HR; Start 09/03/16 at 14:00 HILLARY VALDOVINOS Sep 05, 2016 15:10
[2016-09-05] MEDS: PIPER-TAZO 3.375 GM IV (PMX) 100 ML IVPB SCH ×2 (17:33→23:55)
[2016-09-05 17:58] LABS: HEMATOCRIT 25.2 % (42.0-52.0); HEMOGLOBIN 8.3 g/dl (14.0-18.0)
[2016-09-05 21:46] VITALS: BP 102/60; RESP 18
[2016-09-06] MEDS: LORAZEPAM 2 MG INJ IV PRN (00:55)
[2016-09-06 01:37] LABS: HEMATOCRIT 28.3 % (42.0-52.0); HEMOGLOBIN 8.8 g/dl (14.0-18.0)
[2016-09-06 05:31] LABS: ADD SCAN DIFF NO
[2016-09-06] MEDS: PIPER-TAZO 3.375 GM IV (PMX) 100 ML IVPB SCH ×3 (05:52→17:38)
[2016-09-06] MEDS: SOD CHLORIDE 0.9% 1,000 ML IV SCH (05:52)
[2016-09-06] MEDS: PANTOPRAZOLE 40 MG INJ IV SCH ×2 (05:52→17:38)
[2016-09-06 06:01] LABS: POTASSIUM 4.1 mmol/L (3.5-5.1)
[2016-09-06 06:02] LABS: BASOPHILS % 0.1 % (0.0-2.0); HEMATOCRIT 25.9 % (42.0-52.0); HEMOGLOBIN 8.1 g/dl (14.0-18.0); LYMPHOCYTES # 1.8 10^3/ul (0.8-2.9); LYMPHOCYTES % 9.5 % (15.0-51.0); MEAN CORPUSCULAR HEMOGLOBIN 26.9 pg (29.0-33.0); MEAN CORPUSCULAR HGB CONC 31.3 g/dl (32.0-37.0); MEAN PLATELET VOLUME 9.2 fl (7.4-10.4); MONOCYTE # 0.8 10^3/ul (0.3-0.9); MONOCYTES % 4.1 % (0.0-11.0); NEUTROPHIL # 16.3 10^3/ul (1.6-7.5); NEUTROPHILS % 85.5 % (39.0-77.0); PLATELET COUNT 470 10^3/UL (140-415); RED BLOOD COUNT 3.01 10^6/ul (4.70-6.10); RED CELL DISTRIBUTION WIDTH 13.7 % (11.5-14.5)
[2016-09-06 06:03] LABS: CREATININE 0.69 mg/dl (0.61-1.24)
[2016-09-06 06:04] LABS: CALCIUM 8.4 mg/dl (8.4-10.2)
[2016-09-06 08:06] VITALS: BP 118/67; RESP 18
[2016-09-06] MEDS: MESALAMINE (SR) 250 MG CAP PO SCH ×4 (09:14→22:01)
[2016-09-06] MEDS: AZATHIOPRINE 50 MG TAB PO SCH (09:14)
[2016-09-06] MEDS: METHYLPREDNISOLONE 40 MG INJ IV SCH ×2 (09:14→22:00)
[2016-09-06] MEDS: morphine 2 MG INJ IV PRN ×2 (11:48→16:44)
[2016-09-06 13:27] LABS: HEMATOCRIT 26.8 % (42.0-52.0); HEMOGLOBIN 8.6 g/dl (14.0-18.0)
[2016-09-06] MEDS ORDERED: MES250 PO (14:36)
[2016-09-06] MEDS ORDERED: IMU50 PO (14:36)
[2016-09-06] MEDS ORDERED: PANT40TA4 PO (14:36)
[2016-09-06] MEDS: ALPRAZOLAM 0.25 MG TAB PO SCH ×2 (15:08→22:00)
--- NOTE | 2016-09-06 15:38 | CONS ---
Date/Time of Note Date/Time of Note DATE: 09/06/16 TIME: 15:33 Assessment/Plan Assessment/Plan Chief Complaint/Hosp Course Impression: 1. Reported GI bleed. Status post colonoscopy with severe colitis seen. 2. Iron anemia. Continue iron supplement 3. likely Crohn's disease causing #1 and 2 4. Reported fall secondary to syncope. CT scan of the brain negative for any acute findings. Doppler of the carotid also with no acute findings. 5. History of Susanna granulomatosis. Recommendations: 1. Will continue on Pentasa, Solu-Medrol 2. Follow-up on pathology from biopsy. 3. Continue on Cipro and Flagyl for now 4. transfuse PRN hgb less than 8 5. change imuran to mercaptopurine as it also works for [place]ers granulomatosis and better for treatment of Crohn's disease 6. check LFT tomorrow to make sure patient's not developing reactions to imuran/ mercaptopurine Problems: Consultation Date/Type/Reason Admit Date/Time Sep 02, 2016 at 11:32 Initial Consult Date Type of Consultation: Gastroenterology 24 HR Interval Summary Free Text/Dictation complains that he is mentally slow, no n/v, still has blood in stool Exam/Review of Systems Vital Signs Vitals Vital Signs Date Time Temp Pulse Resp B/P Pulse Ox O2 Delivery O2 Flow Rate FiO2 09/06/16 08:06 97.6 63 18 118/67 100 09/02/16 19:29 Room Air Intake and Output 09/05/16 09/05/16 09/06/16 15:00 23:00 07:00 Intake Total 100 ml 2460 ml 2580 ml Balance 100 ml 2460 ml 2580 ml Exam Constitutional: alert, oriented, well developed Psych: nl mood/affect, no complaints Head: atraumatic, normocephalic Eyes: EOMI, nl conjunctiva, nl lids, nl sclera ENMT: mucosa pink and moist, nl external ears & nose, nl lips & teeth, nl nasal mucosa & septum Neck: non-tender, supple Respiratory: clear to auscultation, normal air movement Cardiovascular: nl pulses, regular rate and rhythm Gastrointestinal: bowel sounds, non-tender, soft Results Result Diagram: 09/06/16 1245 09/06/16 0508 Results 24 hrs Laboratory Tests Test 09/05/16 17:55 09/06/16 00:50 09/06/16 05:08 09/06/16 12:45 Hemoglobin 8.3 L 8.8 L 8.1 L 8.6 L Hematocrit 25.2 L 28.3 L 25.9 L 26.8 L White Blood Count 19.0 #H Red Blood Count 3.01 L Mean Corpuscular Volume 86.0 Mean Corpuscular Hemoglobin 26.9 L Mean Corpuscular Hemoglobin Concent 31.3 L Red Cell Distribution Width 13.7 Platelet Count 470 H Mean Platelet Volume 9.2 Neutrophils % 85.5 H Lymphocytes % 9.5 L Monocytes % 4.1 Eosinophils % 0.0 Basophils % 0.1 Nucleated Red Blood Cells % 0.0 Neutrophils # 16.3 H Lymphocytes # 1.8 Monocytes # 0.8 Eosinophils # 0.0 Basophils # 0.0 Nucleated Red Blood Cells # 0.0 Sodium Level 137 Potassium Level 4.1 Chloride Level 101 Carbon Dioxide Level 30 Anion Gap 10 Blood Urea Nitrogen 11 Creatinine 0.69 Glucose Level 138 Calcium Level 8.4 Medications Medications Current Medications Lorazepam (Ativan) 0.5 mg Q6H PRN IV ANXIETY Last administered on 09/06/16 00: 55; Admin Dose 0.5 MG; Start 08/31/16 at 16:30 Ondansetron HCl (Zofran Inj) 4 mg Q6H PRN IV NAUSEA AND/OR VOMITING Last administered on 09/05/16 11:53; Admin Dose 4 MG; Start 08/31/16 at 16:30 Acetaminophen (Tylenol Tab) 650 mg Q6H PRN PO PAIN LEVEL 1-3 OR FEVER Last administered on 09/02/16 09:31; Admin Dose 650 MG; Start 08/31/16 at 16:30 Acetaminophen/ Hydrocodone Bitart ([place] (5/325)) 1 tab Q6H PRN PO PAIN LEVEL 4 -6 Last administered on 09/04/16 13:24; Admin Dose 1 TAB; Start 08/31/16 at 16: 30 Morphine Sulfate (morphine) 2 mg Q4H PRN IV PAIN LEVEL 7-10 Last administered on 09/06/16 11:48; Admin Dose 2 MG; Start 08/31/16 at 16:30 Pantoprazole (Protonix Iv) 40 mg BID@,18 IV Last administered on 09/06/16 05: 52; Admin Dose 40 MG; Start 08/31/16 at 18:00 Acetaminophen (Tylenol Tab) 650 mg Q4H PRN PO ELEVATED TEMP; Start 09/01/16 at 15:30 Mesalamine (Pentasa) 1,000 mg QID PO Last administered on 09/06/16 12:25; Admin Dose 1,000 MG; Start 09/02/16 at 20:00 Methylprednisolone Sodium Succinate 40 mg 40 mg Q12 IV Last administered on 09/06 09:14; Admin Dose 40 MG; Start 09/02/16 at 21:00 Piperacillin Sod/ Tazobactam Sod (Zosyn 3.375gm/ 100 ml (Pmx)) 100 ml @ 200 mls /hr Q6 IVPB Last administered on 09/06/16 11:49; Admin Dose 200 MLS/HR; Start 09/05/16 at 18:00 Alprazolam (Xanax) 0.25 mg Q8 PO Last administered on 09/06/16 15:08; Admin Dose 0.25 MG; Start 09/06/16 at 15:00 Mercaptopurine (Purinethol) 100 mg DAILY PO ; Start 09/07/16 at 09:00; Status JASON FARR MD Sep 06, 2016 15:38
[2016-09-06 18:34] LABS: HEMATOCRIT 28.6 % (42.0-52.0)
[2016-09-06 20:00] VITALS: BP 102/61; PULSE 61; RESP 20
[2016-09-06 20:09] VITALS: BP 102/61; RESP 20
[2016-09-07] MEDS: PIPER-TAZO 3.375 GM IV (PMX) 100 ML IVPB SCH ×5 (00:20→23:51)
[2016-09-07 01:00] VITALS: BP 111/65; PULSE 60; RESP 18
[2016-09-07] MEDS: PANTOPRAZOLE 40 MG INJ IV SCH ×2 (05:19→17:40)
[2016-09-07] MEDS: morphine 2 MG INJ IV PRN ×2 (05:21→14:59)
[2016-09-07 05:23] LABS: ADD SCAN DIFF NO
[2016-09-07 05:48] LABS: BASOPHILS % 0.1 % (0.0-2.0); HEMATOCRIT 26.5 % (42.0-52.0); HEMOGLOBIN 8.6 g/dl (14.0-18.0); LYMPHOCYTES # 1.8 10^3/ul (0.8-2.9); LYMPHOCYTES % 13.3 % (15.0-51.0); MEAN CORPUSCULAR HEMOGLOBIN 27.3 pg (29.0-33.0); MEAN CORPUSCULAR HGB CONC 32.5 g/dl (32.0-37.0); MEAN CORPUSCULAR VOLUME 84.1 fl (82.0-101.0); MEAN PLATELET VOLUME 8.9 fl (7.4-10.4); MONOCYTE # 0.5 10^3/ul (0.3-0.9); MONOCYTES % 3.8 % (0.0-11.0); NEUTROPHILS % 81.2 % (39.0-77.0); NUCLEATED RED BLOOD CELLS% 0.2 /100WBC (0.0-0.0); PLATELET COUNT 530 10^3/UL (140-415); RED BLOOD COUNT 3.15 10^6/ul (4.70-6.10); RED CELL DISTRIBUTION WIDTH 13.4 % (11.5-14.5); WHITE BLOOD COUNT 13.5 10^3/ul (4.8-10.8)
[2016-09-07 06:06] LABS: POTASSIUM 3.9 mmol/L (3.5-5.1)
[2016-09-07 06:09] LABS: CALCIUM 8.3 mg/dl (8.4-10.2); CREATININE 0.62 mg/dl (0.61-1.24)
[2016-09-07 07:11] LABS: ALBUMIN 2.6 g/dl (3.3-4.9)
[2016-09-07 07:14] LABS: TOTAL PROTEIN 5.7 g/dl (6.1-8.1)
[2016-09-07 07:50] VITALS: BP 113/67; RESP 16
[2016-09-07] MEDS: MESALAMINE (SR) 250 MG CAP PO SCH ×4 (08:44→20:50)
[2016-09-07] MEDS: METHYLPREDNISOLONE 40 MG INJ IV SCH ×2 (08:44→20:49)
[2016-09-07] MEDS ORDERED: MERCAPTOPURINE 50 MG TAB PO SCH (09:00)
--- NOTE | 2016-09-07 12:52 | CONS ---
Date/Time of Note Date/Time of Note DATE: 09/07/16 TIME: 12:49 Assessment/Plan Assessment/Plan Chief Complaint/Hosp Course Impression: 1. Reported GI bleed. Status post colonoscopy with findings consistent with active Crohn's disease flare.. 2. Iron anemia. Continue iron supplement 3. likely Crohn's disease causing #1 and 2. His inflammatory markers has improved greatly. 4. Reported fall secondary to syncope. CT scan of the brain negative for any acute findings. Doppler of the carotid also with no acute findings. 5. History of Susanna granulomatosis. Recommendations: 1. Will continue on Pentasa, Solu-Medrol 2. Follow-up on pathology from biopsy. 3. Continue on Cipro and Flagyl for now 4. transfuse PRN hgb less than 8 5. I want to change imuran to mercaptopurine but patient declined. Thus, I place patinet back to imuran but increase dose from 50 to 100 mg daily for better for treatment of Crohn's disease 6. check LFT tomorrow to make sure patient's not developing reactions to imuran/ mercaptopurine 7. ok to dc patient tomorrow if continues to improve. Problems: Consultation Date/Type/Reason Admit Date/Time Sep 02, 2016 at 11:32 Type of Consultation: Gastroenterology 24 HR Interval Summary Free Text/Dictation reduced blood in stool, no n/v Constitutional: improved Exam/Review of Systems Vital Signs Vitals Vital Signs Date Time Temp Pulse Resp B/P Pulse Ox O2 Delivery O2 Flow Rate FiO2 09/07/16 07:50 98.5 66 16 113/67 99 09/07/16 01:00 Room Air Intake and Output 09/06/16 09/06/16 09/07/16 15:00 23:00 07:00 Intake Total 2325 ml 1040 ml Balance 2325 ml 1040 ml Exam Constitutional: alert, oriented, well developed Psych: nl mood/affect, no complaints Head: atraumatic, normocephalic Eyes: EOMI, nl conjunctiva, nl lids, nl sclera ENMT: mucosa pink and moist, nl external ears & nose, nl lips & teeth, nl nasal mucosa & septum Neck: non-tender, supple Respiratory: clear to auscultation, normal air movement Cardiovascular: nl pulses, regular rate and rhythm Gastrointestinal: bowel sounds, non-tender, soft Results Result Diagram: 09/07/16 0500 09/07/16 0500 Results 24 hrs Laboratory Tests Test 09/06/16 18:10 09/07/16 05:00 Hemoglobin 9.0 L 8.6 L Hematocrit 28.6 L 26.5 L White Blood Count 13.5 #H Red Blood Count 3.15 L Mean Corpuscular Volume 84.1 Mean Corpuscular Hemoglobin 27.3 L Mean Corpuscular Hemoglobin Concent 32.5 Red Cell Distribution Width 13.4 Platelet Count 530 H Mean Platelet Volume 8.9 Neutrophils % 81.2 H Lymphocytes % 13.3 L Monocytes % 3.8 Eosinophils % 0.0 Basophils % 0.1 Nucleated Red Blood Cells % 0.2 H Neutrophils # 11.0 H Lymphocytes # 1.8 Monocytes # 0.5 Eosinophils # 0.0 Basophils # 0.0 Nucleated Red Blood Cells # 0.0 Erythrocyte Sedimentation Rate 60 H Sodium Level 134 L Potassium Level 3.9 Chloride Level 100 Carbon Dioxide Level 29 Anion Gap 9 Blood Urea Nitrogen 15 Creatinine 0.62 Glucose Level 163 Calcium Level 8.3 L Total Bilirubin 0.0 L Direct Bilirubin 0.00 Indirect Bilirubin 0.0 Aspartate Amino Transf (AST/SGOT) 18 Alanine Aminotransferase (ALT/SGPT) 33 Alkaline Phosphatase 65 C-Reactive Protein 2.8 H Total Protein 5.7 L Albumin 2.6 L Medications Medications Current Medications Lorazepam (Ativan) 0.5 mg Q6H PRN IV ANXIETY Last administered on 09/06/16 00: 55; Admin Dose 0.5 MG; Start 08/31/16 at 16:30 Ondansetron HCl (Zofran Inj) 4 mg Q6H PRN IV NAUSEA AND/OR VOMITING Last administered on 09/05/16 11:53; Admin Dose 4 MG; Start 08/31/16 at 16:30 Acetaminophen (Tylenol Tab) 650 mg Q6H PRN PO PAIN LEVEL 1-3 OR FEVER Last administered on 09/02/16 09:31; Admin Dose 650 MG; Start 08/31/16 at 16:30 Acetaminophen/ Hydrocodone Bitart ([place] (5/325)) 1 tab Q6H PRN PO PAIN LEVEL 4 -6 Last administered on 09/04/16 13:24; Admin Dose 1 TAB; Start 08/31/16 at 16: 30 Morphine Sulfate (morphine) 2 mg Q4H PRN IV PAIN LEVEL 7-10 Last administered on 09/07/16 05:21; Admin Dose 2 MG; Start 08/31/16 at 16:30 Pantoprazole (Protonix Iv) 40 mg BID@06,18 IV Last administered on 09/07/16 05: 19; Admin Dose 40 MG; Start 08/31/16 at 18:00 Acetaminophen (Tylenol Tab) 650 mg Q4H PRN PO ELEVATED TEMP; Start 09/01/16 at 15:30 Mesalamine (Pentasa) 1,000 mg QID PO Last administered on 09/07/16 12:21; Admin Dose 1,000 MG; Start 09/02/16 at 20:00 Methylprednisolone Sodium Succinate 40 mg 40 mg Q12 IV Last administered on 09/07 08:44; Admin Dose 40 MG; Start 09/02/16 at 21:00 Piperacillin Sod/ Tazobactam Sod (Zosyn 3.375gm/ 100 ml (Pmx)) 100 ml @ 200 mls /hr Q6 IVPB Last administered on 09/07/16 12:16; Admin Dose 200 MLS/HR; Start 09/05/16 at 18:00 Azathioprine (Imuran) 100 mg DAILY PO ; Start 09/07/16 at 13:00 JASON HOOPER MD Sep 07, 2016 12:52
--- NOTE | 2016-09-07 13:33 | PDOCDIS ---
Discharge Instructions DIAGNOSIS Discharge Diagnosis: 1. ulcerative colitis 2. iron anemia CONDITION Patient Condition: Stable HOME CARE INSTRUCTIONS: Special Diet: regular FOLLOW UP/APPOINTMENTS Appointments 1. Follow up with Dr. Yanira Belcher in one week HILLARY VALDOVINOS Sep 07, 2016 13:33
--- NOTE | 2016-09-07 13:38 | PN ---
Date/Time of Note Date/Time of Note LATE ENTRY DATE: 09/06/16 Assessment/Plan VTE Prophylaxis VTE Prophylaxis Intervention: SCD's Lines/Catheters IV Catheter Type (from Nrs): Saline Lock Urinary Cath still in place: No Assessment/Plan Chief Complaint/Hosp Course Assessment and plan 1. 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 Patient status post EGD with severe colitis seen. Suspect IBD. We'll follow-up with pathology. Continue on PPI medication for now. . Transfuse PRBC as needed. cont serial H&H monitoring 2. Iron anemia. Continue iron supplement. stable 3. Reported fall secondary to syncope. CT scan of the brain negative for any acute findings. D oppler of the carotid also with no acute findings. Likely secondary to anemia. Continue to monitor. improved 4. 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 5. Severe colitis.Per colonoscopy report there was seen a severe colitis, universal with an area of less severity in the descending colon. Findings reported to be consistent with possibility of inflammatory bowel disease/Crohn' s disease. Will continue on Pentasa, Solu-Medrol per GI recommendations. Follow-up on pathology from biopsy. Continue on Cipro and Flagyl for now CT scan of the abdomen did show bowel wall thickening increased enhancement involving the entire colon and rectum. Findings were suggestive of ulcerative colitis. Continue with GI recommendations. Await clinical improvement DISPO/PLAN: cont messalamine. still Anemic but stable. monitor level. noted with elevation in wbc. will check AM level. Discharge when medically stable and cleared by consultants Discussed plan of care with Dr. Romo Problems: Subjective 24 Hr Interval Summary Free Text/Dictation Still little reported abdominal pain but less today. Exam/Review of Systems Vital Signs Vitals Vital Signs Date Time Temp Pulse Resp B/P Pulse Ox O2 Delivery O2 Flow Rate FiO2 09/07/16 07:50 98.5 66 16 113/67 99 09/07/16 01:00 Room Air Intake and Output 09/06/16 09/06/16 09/07/16 15:00 23:00 07:00 Intake Total 2325 ml 1040 ml Balance 2325 ml 1040 ml Exam General: less abd pain today. Appears comfortable Eyes: pupils equal round, Anicteric sclera Neck: Supple nontender, no JVD Cardiac: Regular rate Pulmonary: No wheezing or rhonchi GI: soft, minimally tender Extremities: No edema bilateral lower extremities Skin: Clean dry and intact Neurologic: Alert to person place and time and situation Results Result Diagram: 09/07/16 0500 09/07/16 0500 Results 24 hrs Laboratory Tests Test 09/06/16 18:10 09/07/16 05:00 Hemoglobin 9.0 L 8.6 L Hematocrit 28.6 L 26.5 L White Blood Count 13.5 #H Red Blood Count 3.15 L Mean Corpuscular Volume 84.1 Mean Corpuscular Hemoglobin 27.3 L Mean Corpuscular Hemoglobin Concent 32.5 Red Cell Distribution Width 13.4 Platelet Count 530 H Mean Platelet Volume 8.9 Neutrophils % 81.2 H Lymphocytes % 13.3 L Monocytes % 3.8 Eosinophils % 0.0 Basophils % 0.1 Nucleated Red Blood Cells % 0.2 H Neutrophils # 11.0 H Lymphocytes # 1.8 Monocytes # 0.5 Eosinophils # 0.0 Basophils # 0.0 Nucleated Red Blood Cells # 0.0 Erythrocyte Sedimentation Rate 60 H Sodium Level 134 L Potassium Level 3.9 Chloride Level 100 Carbon Dioxide Level 29 Anion Gap 9 Blood Urea Nitrogen 15 Creatinine 0.62 Glucose Level 163 Calcium Level 8.3 L Total Bilirubin 0.0 L Direct Bilirubin 0.00 Indirect Bilirubin 0.0 Aspartate Amino Transf (AST/SGOT) 18 Alanine Aminotransferase (ALT/SGPT) 33 Alkaline Phosphatase 65 C-Reactive Protein 2.8 H Total Protein 5.7 L Albumin 2.6 L Medications Medications Current Medications Lorazepam (Ativan) 0.5 mg Q6H PRN IV ANXIETY Last administered on 09/06/16 00: 55; Admin Dose 0.5 MG; Start 08/31/16 at 16:30 Ondansetron HCl (Zofran Inj) 4 mg Q6H PRN IV NAUSEA AND/OR VOMITING Last administered on 09/05/16 11:53; Admin Dose 4 MG; Start 08/31/16 at 16:30 Acetaminophen (Tylenol Tab) 650 mg Q6H PRN PO PAIN LEVEL 1-3 OR FEVER Last administered on 09/02/16 09:31; Admin Dose 650 MG; Start 08/31/16 at 16:30 Acetaminophen/ Hydrocodone Bitart ([place] (5/325)) 1 tab Q6H PRN PO PAIN LEVEL 4 -6 Last administered on 09/04/16 13:24; Admin Dose 1 TAB; Start 08/31/16 at 16: 30 Morphine Sulfate (morphine) 2 mg Q4H PRN IV PAIN LEVEL 7-10 Last administered on 09/07/16 05:21; Admin Dose 2 MG; Start 08/31/16 at 16:30 Pantoprazole (Protonix Iv) 40 mg BID@06,18 IV Last administered on 09/07/16 05: 19; Admin Dose 40 MG; Start 08/31/16 at 18:00 Acetaminophen (Tylenol Tab) 650 mg Q4H PRN PO ELEVATED TEMP; Start 09/01/16 at 15:30 Mesalamine (Pentasa) 1,000 mg QID PO Last administered on 09/07/16 12:21; Admin Dose 1,000 MG; Start 09/02/16 at 20:00 Methylprednisolone Sodium Succinate 40 mg 40 mg Q12 IV Last administered on 09/07 08:44; Admin Dose 40 MG; Start 09/02/16 at 21:00 Piperacillin Sod/ Tazobactam Sod (Zosyn 3.375gm/ 100 ml (Pmx)) 100 ml @ 200 mls /hr Q6 IVPB Last administered on 09/07/16 12:16; Admin Dose 200 MLS/HR; Start 09/05/16 at 18:00 Azathioprine (Imuran) 100 mg DAILY PO ; Start 09/07/16 at 13:00 HILLARY VALDOVINOS Sep 07, 2016 13:38
[2016-09-07] MEDS ORDERED: IMU50 PO (13:39)
--- NOTE | 2016-09-07 13:45 | PN ---
Date/Time of Note Date/Time of Note DATE: 09/07/16 TIME: 13:41 Assessment/Plan VTE Prophylaxis VTE Prophylaxis Intervention: SCD's Lines/Catheters IV [facility] (from [facility] Saline Lock Urinary Cath still in place: No Assessment/Plan Chief Complaint/Hosp Course Assessment and plan 1. Reported GI bleed. [employer] to follow. Patient status post EGD with severe colitis seen. Suspect IBD.pathology consistent with ulcerative colitis. Continue on PPI medication for now. on imuran . Transfuse PRBC as needed. cont serial H&H monitoring 2. Iron anemia. Continue iron supplement. stable 3. Reported fall secondary to syncope. CT scan of the brain negative for any acute findings. D oppler of the carotid also with no acute findings. Likely secondary to anemia. Continue to monitor. improved 4. 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 5. Severe colitis.Per colonoscopy report there was seen a severe colitis, universal with an area of less severity in the descending colon. Findings reported to be consistent with possibility of inflammatory bowel disease/Crohn' s disease. Will continue on Pentasa, Solu-Medrol per GI recommendations. Follow-up on pathology from biopsy. Continue on Cipro and Flagyl for now CT scan of the abdomen did show bowel wall thickening increased enhancement involving the entire colon and rectum. Findings were suggestive of ulcerative colitis. Continue with GI recommendations. of note, pathology with histomorphological features consistent with idiopathic inflammatory bowel disease favorable for ulcerative colitis. DISPO/PLAN: cont messalamine. still Anemic but stable. monitor level. leukocytosis downward trending. imuran increased per GI. Discharge when medically stable and cleared by consultants Discussed plan of care with Dr. Romo Problems: Subjective 24 Hr Interval Summary Free Text/Dictation resting at this time. no s/s of distress Exam/Review of Systems Vital Signs Vitals Vital Signs Date Time Temp Pulse Resp B/P Pulse Ox O2 Delivery O2 Flow Rate FiO2 09/07/16 07:50 98.5 66 16 113/67 99 09/07/16 01:00 Room Air Intake and Output 09/06/16 09/06/16 09/07/16 15:00 23:00 07:00 Intake Total 2325 ml 1040 ml Balance 2325 ml 1040 ml Exam Constitutional: alert, oriented Psych: nl mood/affect Head: normocephalic Eyes: nl conjunctiva Neck: supple, non-tender, No jvd Respiratory: clear to auscultation, normal air movement Cardiovascular: regular rate and rhythm Gastrointestinal: soft, non-tender Musculoskeletal: nl extremities to inspection, nl gait and stance Extremities: normal pulses Neurological: nl mental status, nl speech, nl strength Skin: nl turgor, No rash or lesions Results Result Diagram: 09/07/16 0500 09/07/16 0500 Results 24 hrs Laboratory Tests Test 09/06/16 18:10 09/07/16 05:00 Hemoglobin 9.0 L 8.6 L Hematocrit 28.6 L 26.5 L White Blood Count 13.5 #H Red Blood Count 3.15 L Mean Corpuscular Volume 84.1 Mean Corpuscular Hemoglobin 27.3 L Mean Corpuscular Hemoglobin Concent 32.5 Red Cell Distribution Width 13.4 Platelet Count 530 H Mean Platelet Volume 8.9 Neutrophils % 81.2 H Lymphocytes % 13.3 L Monocytes % 3.8 Eosinophils % 0.0 Basophils % 0.1 Nucleated Red Blood Cells % 0.2 H Neutrophils # 11.0 H Lymphocytes # 1.8 Monocytes # 0.5 Eosinophils # 0.0 Basophils # 0.0 Nucleated Red Blood Cells # 0.0 Erythrocyte Sedimentation Rate 60 H Sodium Level 134 L Potassium Level 3.9 Chloride Level 100 Carbon Dioxide Level 29 Anion Gap 9 Blood Urea Nitrogen 15 Creatinine 0.62 Glucose Level 163 Calcium Level 8.3 L Total Bilirubin 0.0 L Direct Bilirubin 0.00 Indirect Bilirubin 0.0 Aspartate Amino Transf (AST/SGOT) 18 Alanine Aminotransferase (ALT/SGPT) 33 Alkaline Phosphatase 65 C-Reactive Protein 2.8 H Total Protein 5.7 L Albumin 2.6 L Medications Medications Current Medications Lorazepam (Ativan) 0.5 mg Q6H PRN IV ANXIETY Last administered on 09/06/16 00: 55; Admin Dose 0.5 MG; Start 08/31/16 at 16:30 Ondansetron HCl (Zofran Inj) 4 mg Q6H PRN IV NAUSEA AND/OR VOMITING Last administered on 09/05/16 11:53; Admin Dose 4 MG; Start 08/31/16 at 16:30 Acetaminophen (Tylenol Tab) 650 mg Q6H PRN PO PAIN LEVEL 1-3 OR FEVER Last administered on 09/02/16 09:31; Admin Dose 650 MG; Start 08/31/16 at 16:30 Acetaminophen/ Hydrocodone Bitart ([place] (5/325)) 1 tab Q6H PRN PO PAIN LEVEL 4 -6 Last administered on 09/04/16 13:24; Admin Dose 1 TAB; Start 08/31/16 at 16: 30 Morphine Sulfate (morphine) 2 mg Q4H PRN IV PAIN LEVEL 7-10 Last administered on 09/07/16 05:21; Admin Dose 2 MG; Start 08/31/16 at 16:30 Pantoprazole (Protonix Iv) 40 mg BID@06,18 IV Last administered on 09/07/16 05: 19; Admin Dose 40 MG; Start 08/31/16 at 18:00 Acetaminophen (Tylenol Tab) 650 mg Q4H PRN PO ELEVATED TEMP; Start 09/01/16 at 15:30 Mesalamine (Pentasa) 1,000 mg QID PO Last administered on 09/07/16 12:21; Admin Dose 1,000 MG; Start 09/02/16 at 20:00 Methylprednisolone Sodium Succinate 40 mg 40 mg Q12 IV Last administered on 09/07 08:44; Admin Dose 40 MG; Start 09/02/16 at 21:00 Piperacillin Sod/ Tazobactam Sod (Zosyn 3.375gm/ 100 ml (Pmx)) 100 ml @ 200 mls /hr Q6 IVPB Last administered on 09/07/16 12:16; Admin Dose 200 MLS/HR; Start 09/05/16 at 18:00 Azathioprine (Imuran) 100 mg DAILY PO ; Start 09/07/16 at 13:00 HILLARY VALDOVINOS Sep 07, 2016 13:45
[2016-09-07] MEDS: AZATHIOPRINE 50 MG TAB PO SCH (14:00)
[2016-09-07 21:08] VITALS: BP 98/58; RESP 20
[2016-09-07] MEDS: LORAZEPAM 2 MG INJ IV PRN (22:05)
[2016-09-08] MEDS: PANTOPRAZOLE 40 MG INJ IV SCH (05:26)
[2016-09-08] MEDS: PIPER-TAZO 3.375 GM IV (PMX) 100 ML IVPB SCH ×2 (05:26→11:54)
[2016-09-08] MEDS: morphine 2 MG INJ IV PRN (05:26)
[2016-09-08 05:35] LABS: ADD SCAN DIFF NO
[2016-09-08 05:40] LABS: BASOPHILS % 0.1 % (0.0-2.0); HEMATOCRIT 27.7 % (42.0-52.0); HEMOGLOBIN 8.8 g/dl (14.0-18.0); LYMPHOCYTES # 1.8 10^3/ul (0.8-2.9); LYMPHOCYTES % 12.2 % (15.0-51.0); MEAN CORPUSCULAR HEMOGLOBIN 27.2 pg (29.0-33.0); MEAN CORPUSCULAR HGB CONC 31.8 g/dl (32.0-37.0); MEAN CORPUSCULAR VOLUME 85.8 fl (82.0-101.0); MONOCYTE # 0.6 10^3/ul (0.3-0.9); MONOCYTES % 3.9 % (0.0-11.0); NEUTROPHIL # 11.8 10^3/ul (1.6-7.5); NEUTROPHILS % 82.4 % (39.0-77.0); NUCLEATED RED BLOOD CELLS% 0.1 /100WBC (0.0-0.0); PLATELET COUNT 558 10^3/UL (140-415); RED BLOOD COUNT 3.23 10^6/ul (4.70-6.10); RED CELL DISTRIBUTION WIDTH 13.6 % (11.5-14.5); WHITE BLOOD COUNT 14.3 10^3/ul (4.8-10.8)
[2016-09-08 06:00] LABS: ALBUMIN 2.7 g/dl (3.3-4.9)
[2016-09-08 06:02] LABS: CREATININE 0.71 mg/dl (0.61-1.24)
[2016-09-08 06:03] LABS: ALBUMIN/GLOBULIN RATIO 0.84; CALCIUM 8.4 mg/dl (8.4-10.2); TOTAL PROTEIN 5.9 g/dl (6.1-8.1)
[2016-09-08 06:06] LABS: C-REACTIVE PROTEIN 1.7 mg/dl (0.0-0.9)
[2016-09-08 08:21] VITALS: BP 93/52; RESP 16
[2016-09-08] MEDS: MESALAMINE (SR) 250 MG CAP PO SCH ×4 (09:40→21:04)
[2016-09-08] MEDS: AZATHIOPRINE 50 MG TAB PO SCH (09:40)
[2016-09-08] MEDS: METHYLPREDNISOLONE 40 MG INJ IV SCH (09:41)
--- NOTE | 2016-09-08 10:30 | CONS ---
Date/Time of Note Date/Time of Note DATE: 09/08/16 TIME: 10:26 Assessment/Plan Assessment/Plan Chief Complaint/Hosp Course Impression: 1. Reported GI bleed. Status post colonoscopy with findings consistent with active Crohn's disease flare. 2. Iron anemia. Continue iron supplement 3. likely Crohn's disease causing #1 and 2. His inflammatory markers has improved. 4. Reported fall secondary to syncope. CT scan of the brain negative for any acute findings. Doppler of the carotid also with no acute findings. 5. History of Susanna granulomatosis. 6. worried about infertility side effect of mesalamine. I counseled him that the infertility for man is with earlier medication of the same class ( sulfasalazine) and that to my knowledge, mesalamine do not cause infertility in man. Recommendations: 1. Continue pentasa 2. Follow-up on pathology from biopsy. 3. changed solumedrol to prednisone 40 mg po daily in anticipation of discharge 4. changed protonix from iv to oral in anticipation for patient discharge 5. Continue imuran at 100 mg daily for better for treatment of Crohn's disease. WBC and LFT do not show side effects associated with imuran. 6. OK to dc patient from GI perspective to continue prednisone at 40 mg po daily and reduce by 5 mg per week until off. If he is discharged, he needs to be followed up with GI specialist as out-pt (with Dr. Belcher if he do not have a GI specialist). Problems: Consultation Date/Type/Reason Admit Date/Time Sep 02, 2016 at 11:32 Type of Consultation: Gastroenterology 24 HR Interval Summary Free Text/Dictation REDUCED ABDOMINAL PAIN, NO N/V, FEELS FATIGUED Constitutional: improved Exam/Review of Systems Vital Signs Vitals Vital Signs Date Time Temp Pulse Resp B/P Pulse Ox O2 Delivery O2 Flow Rate FiO2 09/08/16 08:21 98.2 54 16 93/52 99 09/07/16 01:00 Room Air Intake and Output 09/07/16 09/07/16 09/08/16 15:00 23:00 07:00 Intake Total 100 ml 2200 ml 100 ml Balance 100 ml 2200 ml 100 ml Exam Constitutional: alert, oriented, well developed Psych: nl mood/affect, no complaints Head: atraumatic, normocephalic Eyes: EOMI, nl conjunctiva, nl lids, nl sclera ENMT: mucosa pink and moist, nl external ears & nose, nl lips & teeth, nl nasal mucosa & septum Neck: non-tender, supple Respiratory: clear to auscultation, normal air movement Cardiovascular: nl pulses, regular rate and rhythm Gastrointestinal: bowel sounds, non-tender, soft Results Result Diagram: 09/08/163 09/08/16 0443 Results 24 hrs Laboratory Tests Test 09/08/16 04:43 White Blood Count 14.3 H Red Blood Count 3.23 L Hemoglobin 8.8 L Hematocrit 27.7 L Mean Corpuscular Volume 85.8 Mean Corpuscular Hemoglobin 27.2 L Mean Corpuscular Hemoglobin Concent 31.8 L Red Cell Distribution Width 13.6 Platelet Count 558 H Mean Platelet Volume 9.0 Neutrophils % 82.4 H Lymphocytes % 12.2 L Monocytes % 3.9 Eosinophils % 0.0 Basophils % 0.1 Nucleated Red Blood Cells % 0.1 H Neutrophils # 11.8 H Lymphocytes # 1.8 Monocytes # 0.6 Eosinophils # 0.0 Basophils # 0.0 Nucleated Red Blood Cells # 0.0 Erythrocyte Sedimentation Rate 45.0 H Sodium Level 136 Potassium Level 4.0 Chloride Level 97 Carbon Dioxide Level 30 Anion Gap 13 Blood Urea Nitrogen 18 Creatinine 0.71 Glucose Level 127 Calcium Level 8.4 Total Bilirubin 0.0 L Direct Bilirubin 0.00 Indirect Bilirubin 0.0 Aspartate Amino Transf (AST/SGOT) 14 L Alanine Aminotransferase (ALT/SGPT) 28 Alkaline Phosphatase 55 C-Reactive Protein 1.7 H Total Protein 5.9 L Albumin 2.7 L Globulin 3.20 Albumin/Globulin Ratio 0.84 Medications Medications Current Medications Lorazepam (Ativan) 0.5 mg Q6H PRN IV ANXIETY Last administered on 09/07/16 22: 05; Admin Dose 0.5 MG; Start 08/31/16 at 16:30 Ondansetron HCl (Zofran Inj) 4 mg Q6H PRN IV NAUSEA AND/OR VOMITING Last administered on 09/05/16 11:53; Admin Dose 4 MG; Start 08/31/16 at 16:30 Acetaminophen (Tylenol Tab) 650 mg Q6H PRN PO PAIN LEVEL 1-3 OR FEVER Last administered on 09/02/16 09:31; Admin Dose 650 MG; Start 08/31/16 at 16:30 Acetaminophen/ Hydrocodone Bitart ([place] (5/325)) 1 tab Q6H PRN PO PAIN LEVEL 4 -6 Last administered on 09/04/16 13:24; Admin Dose 1 TAB; Start 08/31/16 at 16: 30 Morphine Sulfate (morphine) 2 mg Q4H PRN IV PAIN LEVEL 7-10 Last administered on 09/08/16 05:26; Admin Dose 2 MG; Start 08/31/16 at 16:30 Pantoprazole (Protonix Iv) 40 mg BID@06,18 IV Last administered on 09/08/16 05: 26; Admin Dose 40 MG; Start 08/31/16 at 18:00 Acetaminophen (Tylenol Tab) 650 mg Q4H PRN PO ELEVATED TEMP; Start 09/01/16 at 15:30 Mesalamine (Pentasa) 1,000 mg QID PO Last administered on 09/08/16 09:40; Admin Dose 1,000 MG; Start 09/02/16 at 20:00 Methylprednisolone Sodium Succinate 40 mg 40 mg Q12 IV Last administered on 09/08 09:41; Admin Dose 40 MG; Start 09/02/16 at 21:00 Piperacillin Sod/ Tazobactam Sod (Zosyn 3.375gm/ 100 ml (Pmx)) 100 ml @ 200 mls /hr Q6 IVPB Last administered on 09/08/16 05:26; Admin Dose 200 MLS/HR; Start 09/05/16 at 18:00 Azathioprine (Imuran) 100 mg DAILY PO Last administered on 09/08/16 09:40; Admin Dose 100 MG; Start 09/07/16 at 13:00 JASON HOOPER MD Sep 08, 2016 10:30
[2016-09-08] MEDS: predniSONE 20 MG TAB PO SCH (12:27)
--- NOTE | 2016-09-08 14:27 | PN ---
Date/Time of Note Date/Time of Note DATE: 09/08/16 TIME: 14:22 Assessment/Plan VTE Prophylaxis VTE Prophylaxis Intervention: SCD's Lines/Catheters [facility] Saline Lock Urinary Cath still in place: No Assessment/Plan Assessment/Plan 1. Crohn's disease, on Imuran, prednisone, and mesalamine, better with less mucus 2. Hypotension, symptomatic, one unit PRBC 3. Anemia, due to crohn's, symptomatic, one unit PRBC 4. History of Susanna granulomatosis. Subjective 24 Hr Interval Summary Free Text/Dictation lightheadedness, especially on standing, weak Exam/Review of Systems Vital Signs Vitals Vital Signs Date Time Temp Pulse Resp B/P Pulse Ox O2 Delivery O2 Flow Rate FiO2 09/08/16 08:21 98.2 54 16 93/52 99 09/07/16 01:00 Room Air Intake and Output 09/07/16 09/07/16 09/08/16 15:00 23:00 07:00 Intake Total 100 ml 2200 ml 100 ml Balance 100 ml 2200 ml 100 ml Exam Constitutional: alert, oriented, well developed Psych: nl mood/affect, no complaints Head: atraumatic, normocephalic Eyes: EOMI, nl conjunctiva, nl lids ENMT: nl external ears & nose, nl lips & teeth, nl nasal mucosa & septum Neck: non-tender, supple Respiratory: clear to auscultation, normal air movement, No congested cough, No crackles/rales, No diminished breath sounds, No intercostal retraction, No labored breathing, No other, No respirations, No tactile fremitus, No wheezing Cardiovascular: nl pulses, regular rate and rhythm, No S3, No S4, No bruits, No diastolic murmur, No edema, No gallop, No irregular rhythm, No jugular venous distention (JVD), No murmurs/extra sounds, No other, No rub, No systolic murmur Gastrointestinal: nl liver, spleen, soft, No ascites, No bowel sounds, No distended, No firm, No hepatomegaly, No mass , No other, No rebound or guarding, No splenomegaly, No surgical scars Musculoskeletal: nl extremities to inspection Extremities: normal pulses, No calf tenderness, No clubbing, No cyanosis, No edema, No other, No palpable cord, No pitting pedal edema, No tenderness Neurological: [employer] SPECIALIST II-XII intact, nl mental status, nl speech, nl strength Skin: nl turgor Lymph: nl lymph nodes Results Result Diagram: 09/08/1644209/08/16442 Results 24 hrs Laboratory Tests Test 09/08/16 04:43 White Blood Count 14.3 H Red Blood Count 3.23 L Hemoglobin 8.8 L Hematocrit 27.7 L Mean Corpuscular Volume 85.8 Mean Corpuscular Hemoglobin 27.2 L Mean Corpuscular Hemoglobin Concent 31.8 L Red Cell Distribution Width 13.6 Platelet Count 558 H Mean Platelet Volume 9.0 Neutrophils % 82.4 H Lymphocytes % 12.2 L Monocytes % 3.9 Eosinophils % 0.0 Basophils % 0.1 Nucleated Red Blood Cells % 0.1 H Neutrophils # 11.8 H Lymphocytes # 1.8 Monocytes # 0.6 Eosinophils # 0.0 Basophils # 0.0 Nucleated Red Blood Cells # 0.0 Erythrocyte Sedimentation Rate 45.0 H Sodium Level 136 Potassium Level 4.0 Chloride Level 97 Carbon Dioxide Level 30 Anion Gap 13 Blood Urea Nitrogen 18 Creatinine 0.71 Glucose Level 127 Calcium Level 8.4 Total Bilirubin 0.0 L Direct Bilirubin 0.00 Indirect Bilirubin 0.0 Aspartate Amino Transf (AST/SGOT) 14 L Alanine Aminotransferase (ALT/SGPT) 28 Alkaline Phosphatase 55 C-Reactive Protein 1.7 H Total Protein 5.9 L Albumin 2.7 L Globulin 3.20 Albumin/Globulin Ratio 0.84 Medications Medications Current Medications Lorazepam (Ativan) 0.5 mg Q6H PRN IV ANXIETY Last administered on 09/07/16 22: 05; Admin Dose 0.5 MG; Start 08/31/16 at 16:30 Ondansetron HCl (Zofran Inj) 4 mg Q6H PRN IV NAUSEA AND/OR VOMITING Last administered on 09/05/16 11:53; Admin Dose 4 MG; Start 08/31/16 at 16:30 Acetaminophen (Tylenol Tab) 650 mg Q6H PRN PO PAIN LEVEL 1-3 OR FEVER Last administered on 09/02/16 09:31; Admin Dose 650 MG; Start 08/31/16 at 16:30 Acetaminophen/ Hydrocodone Bitart ([place] (5/325)) 1 tab Q6H PRN PO PAIN LEVEL 4 -6 Last administered on 09/04/16 13:24; Admin Dose 1 TAB; Start 08/31/16 at 16: 30 Morphine Sulfate (morphine) 2 mg Q4H PRN IV PAIN LEVEL 7-10 Last administered on 09/08/16 05:26; Admin Dose 2 MG; Start 08/31/16 at 16:30 Acetaminophen (Tylenol Tab) 650 mg Q4H PRN PO ELEVATED TEMP; Start 09/01/16 at 15:30 Mesalamine (Pentasa) 1,000 mg QID PO Last administered on 09/08/16 12:28; Admin Dose 1,000 MG; Start 09/02/16 at 20:00 Azathioprine (Imuran) 100 mg DAILY PO Last administered on 09/08/16 09:40; Admin Dose 100 MG; Start 09/07/16 at 13:00 Pantoprazole (Protonix Tab) 40 mg DAILY@06 PO ; Start 09/09/16 at 06:00 Prednisone (Prednisone) 40 mg DAILY PO Last administered on 09/08/16 12:27; Admin Dose 40 MG; Start 09/08/16 at 10:30 KEVIN العراقي MD Sep 08, 2016 14:27
[2016-09-08] MEDS: LORAZEPAM 2 MG INJ IV PRN (22:11)
[2016-09-08 22:29] VITALS: BP 94/53; RESP 18
[2016-09-09 05:36] LABS: ADD SCAN DIFF NO
[2016-09-09 05:48] LABS: BASOPHILS % 0.1 % (0.0-2.0); EOSINOPHILS % 0.2 % (0.0-7.0); HEMATOCRIT 28.5 % (42.0-52.0); LYMPHOCYTES # 2.8 10^3/ul (0.8-2.9); LYMPHOCYTES % 19.6 % (15.0-51.0); MEAN CORPUSCULAR HEMOGLOBIN 26.9 pg (29.0-33.0); MEAN CORPUSCULAR HGB CONC 31.6 g/dl (32.0-37.0); MEAN CORPUSCULAR VOLUME 85.1 fl (82.0-101.0); MONOCYTE # 1.3 10^3/ul (0.3-0.9); MONOCYTES % 8.8 % (0.0-11.0); NEUTROPHIL # 10.1 10^3/ul (1.6-7.5); NEUTROPHILS % 69.9 % (39.0-77.0); NUCLEATED RED BLOOD CELLS% 0.2 /100WBC (0.0-0.0); PLATELET COUNT 590 10^3/UL (140-415); RED BLOOD COUNT 3.35 10^6/ul (4.70-6.10); RED CELL DISTRIBUTION WIDTH 13.6 % (11.5-14.5); WHITE BLOOD COUNT 14.4 10^3/ul (4.8-10.8)
[2016-09-09] MEDS ORDERED: PANTOPRAZOLE (EC) 40 MG TAB PO SCH (06:00)
[2016-09-09 06:02] LABS: POTASSIUM 3.9 mmol/L (3.5-5.1)
[2016-09-09 06:04] LABS: CREATININE 0.6 mg/dl (0.61-1.24)
[2016-09-09 06:05] LABS: CALCIUM 8.5 mg/dl (8.4-10.2); MAGNESIUM 2.1 mg/dl (1.7-2.5)
[2016-09-09 08:14] VITALS: BP 97/54; RESP 63
[2016-09-09] MEDS: MESALAMINE (SR) 250 MG CAP PO SCH ×3 (08:17→18:42)
[2016-09-09] MEDS: AZATHIOPRINE 50 MG TAB PO SCH (08:17)
[2016-09-09] MEDS: predniSONE 20 MG TAB PO SCH (08:17)
--- NOTE | 2016-09-09 09:48 | PN ---
Date/Time of Note Date/Time of Note DATE: 09/09/16 TIME: 09:38 Assessment/Plan VTE Prophylaxis VTE Prophylaxis Intervention: ambulation Lines/Catheters IV [facility]from [facility] Saline Lock Urinary Cath still in place: No Assessment/Plan Chief Complaint/Hosp Course Problems: Assessment/Plan Assessment * Anemia acute hemoglobin 9 * S/P colonoscopy 09/03/2016 Severe colitis, universal with an area of less severity in the descending colon. Ileitis. The findings appeared consistent with the possibility of inflammatory bowel disease/Crohn's disease. GI bleed/Hematochezia resolved * LGI bleeding: Crohn disease Diarrhea resolved S/P CT enterography 09/03/2016 1. There is bowel wall thickening with increased enhancement involving the entire colon and rectum. These findings are most suggestive of ulcerative colitis. Fluid is seen through non organized segments of small bowel. There is a small hiatal hernia. The appendix is prominent in caliber with air seen in the lumen. 2. There is a small amount of free intraperitoneal fluid with no free air evident. 3. Hepatomegaly with no focal lesion. 4. A 1.1 cm retroperitoneal node is seen to the left of the abdominal aorta at the level of the inferior L3. 5. Bilateral sacroiliitis Susanna granulomatosis Syncope ct head negative Plan * monitor H and H q6 and transfuse 1 unit PRBC for hemoglobin 7.5,and 2 units if hgb less than 7 * continue present management * stable for discharge Subjective 24 Hr Interval Summary Free Text/Dictation * course reviewed with nurse * patient seen and examined * complains of occasional bloating, no hematochezia patient on oral steroids * CT enterography 09/03/2016 * There is bowel wall thickening with increased enhancement involving the entire colon and rectum. These findings are most suggestive of ulcerative colitis. * Fluid is seen through non organized segments of small bowel. * There is a small hiatal hernia. The appendix is prominent in caliber with air seen in the lumen * .. There is a small amount of free intraperitoneal fluid with no free air evident. * Hepatomegaly with no focal lesion. * A 1.1 cm retroperitoneal node is seen to the left of the abdominal aorta at the level of the inferior L3. * Bilateral sacroiliitis * latest hemoglobin 9.0 * colonoscopy 09/03/2016 . Severe colitis, universal with an area of less severity in the descending colon. Ileitis. The findings appeared consistent with the possibility of inflammatory bowel disease/Crohn's disease. * Biopsy results * COMMENT: This case has been reviewed by Dr. Jayson Khan of [facility] who essentially concurs with our interpretation. However, he felt that the histomorphologic features suggest the possibility Crohn's disease over ulcerative colitis with patchy involvement and backwash ileitis. Please see attached consultation report from Dr. Khan. Exam/Review of Systems Vital Signs Vitals Vital Signs Date Time Temp Pulse Resp B/P Pulse Ox O2 Delivery O2 Flow Rate FiO2 09/09/16 08:14 98.0 63 63 97/54 100 09/07/16 01:00 Room Air Intake and Output 09/08/16 09/08/16 09/09/16 15:00 23:00 07:00 Intake Total 100 ml 3200 ml 550 ml Balance 100 ml 3200 ml 550 ml Exam Constitutional: alert, oriented, well developed Psych: nl mood/affect Neck: non-tender, supple Respiratory: clear to auscultation, normal air movement Cardiovascular: nl pulses, regular rate and rhythm Gastrointestinal: bowel sounds, non-tender, soft, No distended, No rebound or guarding Musculoskeletal: nl gait and stance Results Result Diagram: 09/09/16 0445 09/09/16 0445 Results 24 hrs Laboratory Tests Test 09/09/16 04:45 White Blood Count 14.4 H Red Blood Count 3.35 L Hemoglobin 9.0 L Hematocrit 28.5 L Mean Corpuscular Volume 85.1 Mean Corpuscular Hemoglobin 26.9 L Mean Corpuscular Hemoglobin Concent 31.6 L Red Cell Distribution Width 13.6 Platelet Count 590 H Mean Platelet Volume 9.0 Neutrophils % 69.9 Lymphocytes % 19.6 Monocytes % 8.8 Eosinophils % 0.2 Basophils % 0.1 Nucleated Red Blood Cells % 0.2 H Neutrophils # 10.1 H Lymphocytes # 2.8 Monocytes # 1.3 H Eosinophils # 0.0 Basophils # 0.0 Nucleated Red Blood Cells # 0.0 Sodium Level 133 L Potassium Level 3.9 Chloride Level 100 Carbon Dioxide Level 29 Anion Gap 8 Blood Urea Nitrogen 18 Creatinine 0.60 L Glucose Level 90 Calcium Level 8.5 Magnesium Level 2.1 Medications Medications Current Medications Lorazepam (Ativan) 0.5 mg Q6H PRN IV ANXIETY Last administered on 09/08/16 22: 11; Admin Dose 0.5 MG; Start 08/31/16 at 16:30 Ondansetron HCl (Zofran Inj) 4 mg Q6H PRN IV NAUSEA AND/OR VOMITING Last administered on 09/05/16 11:53; Admin Dose 4 MG; Start 08/31/16 at 16:30 Acetaminophen (Tylenol Tab) 650 mg Q6H PRN PO PAIN LEVEL 1-3 OR FEVER Last administered on 09/02/16 09:31; Admin Dose 650 MG; Start 08/31/16 at 16:30 Acetaminophen/ Hydrocodone Bitart ([place] (5/325)) 1 tab Q6H PRN PO PAIN LEVEL 4 -6 Last administered on 09/04/16 13:24; Admin Dose 1 TAB; Start 08/31/16 at 16: 30 Morphine Sulfate (morphine) 2 mg Q4H PRN IV PAIN LEVEL 7-10 Last administered on 09/08/16 05:26; Admin Dose 2 MG; Start 08/31/16 at 16:30 Acetaminophen (Tylenol Tab) 650 mg Q4H PRN PO ELEVATED TEMP; Start 09/01/16 at 15:30 Mesalamine (Pentasa) 1,000 mg QID PO Last administered on 09/09/16 08:17; Admin Dose 1,000 MG; Start 09/02/16 at 20:00 Azathioprine (Imuran) 100 mg DAILY PO Last administered on 09/09/16 08:17; Admin Dose 100 MG; Start 09/07/16 at 13:00 Pantoprazole (Protonix Tab) 40 mg DAILY@06 PO Last administered on 09/09/16 05: 35; Admin Dose 40 MG; Start 09/09/16 at 06:00 Prednisone (Prednisone) 40 mg DAILY PO Last administered on 09/09/16 08:17; Admin Dose 40 MG; Start 09/08/16 at 10:30 BRANDON ZUNIGA MD Sep 09, 2016 09:48
[2016-09-09] MEDS ORDERED: PRED20 PO (14:48)
[2016-09-09] MEDS ORDERED: FER325 PO (14:53)
--- NOTE | 2016-09-09 14:59 | DS ---
Date/Time of Note Date/Time of Note DATE: 09/09/16 TIME: 14:53 Discharge Summary Admission/Discharge Info Admit Date/Time Sep 02, 2016 at 11:32 Discharge Date/Time Final Diagnosis 1. Crohn's disease, improving, follow up with Dr. Belcher 2. Hypotension, symptomatic, one unit PRBC 3. Anemia, due to crohn's, symptomatic, one unit PRBC, iron supplement 4. History of Susanna granulomatosis. Patient Condition: Stable Procedures G.I. LAB PROCEDURE DATE OF PROCEDURE: NAME OF PROCEDURE: Colonoscopy with biopsies. SURGEON: Yanira Belcher MD. PREOPERATIVE DIAGNOSIS(ES) POSTOPERATIVE DIAGNOSIS(ES) BRIEF HISTORY AND INDICATIONS: Patient with evidence of hematochezia and diarrhea. PREMEDICATION: Monitored anesthesia care by anesthesiologist. INSTRUMENT USED: Olympus colonoscope. PREPARATION: Adequate. TECHNIQUE: After informed consent, with the patient/relatives understanding the procedure, its indications potential risks and complications, including but not limited to: allergic reaction, bleeding, perforation, infection, missed lesions and after all pertinent questions were answered to the patient's satisfaction, the patient/relatives signed the witnessed informed consent. Following this, premedication was administered slowly IV push by under careful cardiovascular and respiratory monitoring with pulse oximetry, automatic blood pressure and patient monitor. Once the sedative effect was achieved, the patient was placed in the left lateral decubitus position, digital rectal examination was performed. The colonoscope was then introduced and advanced under visual control throughout all segments of the colon including: the rectum, sigmoid, descending colon, splenic flexure, transverse colon, hepatic flexure, ascending colon and finally reaching the cecum which was clearly identified by transillumination, finger indentation and the ileocecal valve. Careful examination of the mucosa of the lower gastrointestinal tract both on insertion as well as withdrawal of the instrument disclosed the following findings: Rectal Examination: No evidence of perirectal disease, no masses. Colonic Mucosa: There was severe erythema, edema and ulceration of the mucosa that extends from the rectum to at least the mid descending colon, at which point the degree of inflammatory process decreases remarkably; however, as we reached the transverse colon and more proximal portion of the colon, especially with the ascending colon, the process intensifies dramatically again. The ileocecal valve was clearly identified and appears informed. Terminal ileum appears also severely inflamed. Biopsies were obtained at terminal ileum, ascending colon, transverse colon, descending colon, sigmoid colon, and rectum. Moderate sized internal hemorrhoids are also present. The instrument was then withdrawn, the patient tolerated the procedure well and was transferred out of the Endoscopy Suite awake and in good condition to continue recovery under observation. IMPRESSION: 1. Severe colitis, universal with an area of less severity in the descending colon. 2. Ileitis. The findings appeared consistent with the possibility of inflammatory bowel disease/Crohn's disease. PLAN: The patient will be placed on Pentasa 1 gram q.i.d., Solu-Medrol [address] and a CT enterography will be obtained, IBD panel will also be obtained. Pathology will be reviewed as soon as available. Further recommendations will depend on the patient's clinical course. A stool specimen was sent for culture, sensitivity and C. diff toxin. Dictated By: YANIRA BELCHER MS/MADHURI Conf#: [id number] DID#: [id number] CC: Yanira Belcher;*EndCC* Hospital Course This is a 36-year-old male with past medical history of Susanna's granulomatosis who had 2 episodes of syncope with resultant fall at home while he was in the shower. The patient verbalized that he was getting out of the shower and then he felt like the lights were getting dark and then he heard a muffling sound in his ears followed by loss of consciousness. He called out to his , who witnessed him collapse and slide his head on the edge of the shower. He quickly regained consciousness, and she helped him to stand up. However, but he had a second episode of loss of consciousness while he was sitting on the toilet. After the second episode, he was unconscious for approximately 3 minutes. There was no reported seizure-like activity. There was no reported foaming in the mouth. The patient denied any chest pain prior to the syncope. The patient verbalized that he has been having bloody diarrhea for the past 1 month or so. He has also been progressively becoming weak. He complained of generalized body aches. There was no reported bleeding from the head. There was no periorbital ecchymosis. He was complaining of chronic constant, dull chest pain and pain in his joints. He was complaining of runny nose. He denied any coughs. The patient follows up with outpatient rheumatology in [place]. The patient was supposed to be on Imuran. However , because of insurance reasons, he was not taking the Imuran for the past 1 year or so. The patient was complaining of dyspnea. He was complaining of abdominal pain. He verbalized subjective fevers. Denied any nausea or vomiting. Denied any hematuria. He denied any hematemesis. Denied any unintentional weight loss. He was complaining of night sweats. In the emergency room, the patient underwent a chest x-ray that was negative for any acute cardiopulmonary findings. He underwent a brain CT scan that was negative for any acute intracranial pathology. The patient's hemoglobin and hematocrit was 8.2 and 25.8, respectively. The patient's urinalysis was negative for any hemoglobin. The patient was treated with IV analgesics as well as IV Reglan and IV fluids in the emergency room. Colonoscopy revealed severe colitis and ileiits likely crohn's disease. Patient is on imuran, mesalamine, and steroid, symptoms improved. Patient will be on prednisone 40 mg po daily then decrease by 5 mg every week. Follow up with PCP and Dr. Belcher. [place] is anemic that he got one unit PRBC. He will be on iron supplement and follow up with PCP. Home Meds Active Scripts Ferrous Sulfate* (Ferrous Sulfate*) 325 Mg Tabec, 325 MG PO BID for 30 Days, TAB Prov:KEVIN العراقي MD 09/09/16 Prednisone (Prednisone) 20 Mg Tab, 40 MG PO DAILY for 30 Days, TAB Prov:KEVIN العراقي MD 09/09/16 Azathioprine* (Imuran*) 50 Mg Tab, 100 MG PO DAILY for 30 Days, TAB Prov:HILLARY VALDOVINOS 09/07/16 Pantoprazole (Protonix) 40 Mg Tabec, 40 MG PO BID for 30 Days, TAB Prov:HILLARY VALDOVINOS 09/06/16 Mesalamine* (Pentasa*) 250 Mg Capsule.sa, 1000 MG PO QID for 30 Days Prov:HILLARY VALDOVINOS 09/06/16 Magaldrate/Simethicone* (Mag-Al Plus Suspension*) 30 Ml Oral.susp, 30 ML PO Q6H Y for GASTROINTESTINAL UPSET, #1 BOTTLE Prov:CUANITA LEMUS NP 03/26/15 Discontinued Scripts Azathioprine* (Imuran*) 50 Mg Tab, 50 MG PO DAILY for 30 Days, TAB Prov:HILLARY VALDOVINOS 09/06/16 Ibuprofen* (Ibuprofen*) 600 Mg Tablet, 600 MG PO Q6H Y for PA, #30 TAB WITH FOOD Prov:ANITA GUIDRY RASHAUN Morris NP 03/26/15 Omeprazole* (Omeprazole*) 10 Mg Capsule.dr, 10 MG PO DAILY, #30 CAP Prov:BREAANITA NP 03/26/15 Naproxen* (Naprosyn*) 500 Mg Tablet, 500 MG PO BID Y for PAIN AND/OR INFLAMMATION, #30 TAB Prov:BETINA MELGAR PA-C 12/29/14 Follow-up Plan PCP and Dr. Owusu in one week Pending Labs Laboratory Tests Test 09/09/16 04:45 White Blood Count 14.410^3/ul (4.8-10.8) Red Blood Count 3.3510^6/ul (4.70-6.10) Hemoglobin 9.0g/dl (14.0-18.0) Hematocrit 28.5% (42.0-52.0) Mean Corpuscular Volume 85.1fl (82.0-101.0) Mean Corpuscular Hemoglobin 26.9pg (29.0-33.0) Mean Corpuscular Hemoglobin Concent 31.6g/dl (32.0-37.0) Red Cell Distribution Width 13.6% (11.5-14.5) Platelet Count 01975^3/UL (140-415) Mean Platelet Volume 9.0fl (7.4-10.4) Neutrophils % 69.9% (39.0-77.0) Lymphocytes % 19.6% (15.0-51.0) Monocytes % 8.8% (0.0-11.0) Eosinophils % 0.2% (0.0-7.0) Basophils % 0.1% (0.0-2.0) Nucleated Red Blood Cells % 0.2/100WBC (0.0-0.0) Neutrophils # 10.110^3/ul (1.6-7.5) Lymphocytes # 2.810^3/ul (0.8-2.9) Monocytes # 1.310^3/ul (0.3-0.9) Eosinophils # 0.010^3/ul (0.0-0.5) Basophils # 0.010^3/ul (0.0-0.1) Nucleated Red Blood Cells # 0.010^3/ul (0.0-0.0) Sodium Level 133mmol/L (135-144) Potassium Level 3.9mmol/L (3.5-5.1) Chloride Level 100mmol/L (97-110) Carbon Dioxide Level 29mmol/L (21-31) Anion Gap 8 (8-16) Blood Urea Nitrogen 18mg/dl (7-20) Creatinine 0.60mg/dl (0.61-1.24) Glucose Level 90mg/dl (70-220) Calcium Level 8.5mg/dl (8.4-10.2) Magnesium Level 2.1mg/dl (1.7-2.5) KEVIN العراقي MD Sep 09, 2016 14:59
== END 2016-09-09 19:00 | disposition home or self-care (01) | DRG 386 ==
LOC: E/R 11:27 → MS4 15:12 → ICU 23:11 → PP2 09-01 13:14 → OBSVTOIN 09-02 11:32
PROVIDERS: ADMIT Family Medicine; ATTEND Family Medicine
PROC: 30233N1 Transfusion of Nonautologous Red Blood Cells into Peripheral Vein, Percutaneous Approach (ICD-10-PCS; 2016-08-31)
PROC: 0DBP8ZX Excision of Rectum, Via Natural or Artificial Opening Endoscopic, Diagnostic (ICD-10-PCS; 2016-09-02)
PROC: 0DBL8ZX Excision of Transverse Colon, Via Natural or Artificial Opening Endoscopic, Diagnostic (ICD-10-PCS; 2016-09-02)
PROC: 0DBN8ZX Excision of Sigmoid Colon, Via Natural or Artificial Opening Endoscopic, Diagnostic (ICD-10-PCS; 2016-09-02)
PROC: 0DBM8ZX Excision of Descending Colon, Via Natural or Artificial Opening Endoscopic, Diagnostic (ICD-10-PCS; 2016-09-02)
PROC: 0DBK8ZX Excision of Ascending Colon, Via Natural or Artificial Opening Endoscopic, Diagnostic (ICD-10-PCS; 2016-09-02)
PROC: 0DBB8ZX Excision of Ileum, Via Natural or Artificial Opening Endoscopic, Diagnostic (ICD-10-PCS; principal; 2016-09-02 17:30)
DX: K50.911 Crohn's disease, unspecified, with rectal bleeding (principal); M31.30 Wegener's granulomatosis without renal involvement; I95.9 Hypotension, unspecified; R16.0 Hepatomegaly, not elsewhere classified; D62 Acute posthemorrhagic anemia; M25.561 Pain in right knee; R10.2 Pelvic and perineal pain; K52.9 Noninfective gastroenteritis and colitis, unspecified; K64.8 Other hemorrhoids; M46.1 Sacroiliitis, not elsewhere classified
CPT/HCPCS: 36415; 36430; 70450; 71010; 72170; 73562; 74178; 80048; 80053; 80076; 81001; 81003; 82270; 82550; 82553; 82652; 82728; 83036; 83540; 83735; 84100; 84439; 84443; 84484; 85014; 85018; 85025; 85610; 85651; 85730; 86021; 86078; 86140; 86850; 86900; 86901; 86920; 87045; 87075; 87081; 88305; 90686; 93005; 93306; 93880; 96374; 96375; 96376; 97116; 97530; 99217; G0378; C9113; J0131; J0744; J1200; J1610; J1940; J2060; J2250; J2270; J2405; J2543; J2765; J2916; J2920; J3010; J7030; J7040; J7500; J7512; P9016; Q9967

== ENCOUNTER → 2017-12-17 | Emergency (ER) | END | disposition home or self-care (01) ==

== ENCOUNTER 2017-12-20 14:23 | Emergency (ER) | END 2017-12-20 20:09 | disposition home or self-care (01) ==

== ENCOUNTER 2017-12-26 14:31 | Inpatient (IN) | END 2018-01-07 19:00 | disposition home or self-care (01) | DRG 386 ==